=== PATIENT | female | born 1945 | race Asian ===

== ENCOUNTER 2022-03-13 11:25 | Outpatient (CLI) | payer MEDICARE, SELFPAY ==
--- NOTE | ~2022-03-13 | XR_ITS ---
XR chest 2V DATE: 03/13/2022 11:55 INDICATION: Cough for one week TECHNIQUE: 2 views COMPARISON: None FINDINGS: Left-sided transvenous pacemaker device with leads overlying right atrium and right ventric le. Normal heart size. No hilar or mediastinal enlargement. No pulmonary infiltrate or consolidation, pleural effusion or pulmonary vascular congestion or pneumo thorax. Osteopenia. There is mild thoracolumbar levoscoliosis. IMPRESSION: No active cardiopulmonary disease Dual-lead left-sided pacemaker device Osteopenia Reviewed, dictated and finalized at location B. ING MACHINE OPERATOR
[2022-03-13 11:50] LABS: Basophils Percent Auto 0.2 % (0.2-1.2); Eosinophils Absolute Auto 0.2 K/mm3 (0-0.3); Eosinophils Percent Auto 1.9 % (0-4.4); Hematocrit 36.8 % (37.0-47.0); Hemoglobin 12.1 g/dL (12.0-15.0); Immature Granulocyte Absolute 0.03 K/mm3 (0.00-0.031); Immature Granulocyte Percent A 0.3 % (0-0.5); Lymphocytes Percent Auto 15.2 % (18.3-44.2); Mean Corpuscular HGB Conc 32.9 g/dl (32-36); Mean Corpuscular Hemoglobin 27.8 pg (26-34); Mean Corpuscular Volume 84.6 fl (80-100); Mean Platelet Volume 10.9 fl (7.4-10.4); Monocytes Absolute Auto 0.8 K/mm3 (0.1-0.6); Monocytes Percent Auto 8.5 % (2.6-8.5); Neutrophils Absolute Auto 6.8 K/mm3 (1.3-6.7); Neutrophils Percent Auto 73.9 % (45.5-73.1); Platelet Count Result 169 k/mm3 (150-375); Red Blood Count 4.35 M/mm3 (4.2-5.4); Red Cell Distribution Width 14.2 % (11.5-14.5); White Blood Count 9.2 K/mm3 (4.5-10.0)
[2022-03-13 12:09] LABS: Alanine Aminotransferase 24 U/L (6-35); Alkaline Phosphatase 72 U/L (38-126); Anion Gap 6 mmol/L (8-16); Aspartate Amino Transferase 39 U/L (14-36); Bilirubin,Total 0.5 mg/dL (0.2-1.3); Blood Urea Nitrogen 35 mg/dL (7-17); Calcium 8.6 mg/dL (8.4-10.2); Carbon Dioxide 23 mmol/L (22-30); Chloride 100 mmol/L (98-107); Cholesterol 144 mg/dL (0-200); Estimated Glomerular Filt Rate 24; Glucose 103 mg/dL (65-110); HDL Direct 44 mg/dL; Potassium 4.2 mmol/L (3.4-5.0); Sodium 129 mmol/L (137-145); Triglycerides 152 mg/dL (<150)
[2022-03-13 12:20] LABS: LDL Cholesterol Direct 58 mg/dL
[2022-03-13 12:30] LABS: Free T4 Free Thyroxine 1.55 ng/mL (0.78-2.19)
== END 2022-03-13 11:26 | disposition home or self-care (01) ==
PROVIDERS: PCP Family Medicine; Visit Provider Family Medicine
DX: E03.9 Hypothyroidism, unspecified (principal); I10 Essential (primary) hypertension; E78.2 Mixed hyperlipidemia; R05.9 Cough, unspecified; M85.80 Other specified disorders of bone density and structure, unspecified site; Z95.0 Presence of cardiac pacemaker
CPT/HCPCS: 36415; 71046; 80053; 80061; 84439; 84443; 84480; 85025

== ENCOUNTER 2022-08-21 09:40 | Outpatient (CLI) | payer MEDICARE, SELFPAY ==
[2022-08-21 10:20] LABS: Alanine Aminotransferase 22 U/L (6-35); Albumin Level 4.1 g/dL (3.5-5.1); Alkaline Phosphatase 77 U/L (38-126); Anion Gap 7 mmol/L (8-16); Aspartate Amino Transferase 32 U/L (14-36); Bilirubin,Total 0.4 mg/dL (0.2-1.3); Blood Urea Nitrogen 17 mg/dL (7-17); Calcium 9.2 mg/dL (8.4-10.2); Carbon Dioxide 27 mmol/L (22-30); Chloride 108 mmol/L (98-107); Cholesterol 149 mg/dL (0-200); Creatine Kinase 73 U/L (30-135); Estimated Glomerular Filt Rate 44; Glucose 93 mg/dL (65-110); HDL Direct 47 mg/dL; Potassium 4.4 mmol/L (3.4-5.0); Sodium 142 mmol/L (137-145); Triglycerides 125 mg/dL (<150)
[2022-08-21 10:31] LABS: LDL Cholesterol Direct 67 mg/dL
== END 2022-08-21 09:41 | disposition home or self-care (01) ==
PROVIDERS: PCP Family Medicine; Visit Provider Specialist
DX: R60.0 Localized edema (principal); I10 Essential (primary) hypertension
CPT/HCPCS: 36415; 80053; 80061; 82550

== ENCOUNTER 2024-01-20 11:57 | Outpatient (CLI) | payer MEDICARE, SELFPAY ==
--- NOTE | ~2024-01-20 | XR_ITS ---
Lumbosacral Spine: AP and lateral views Clinical History: Pain Findings: The normal lordotic curve is maintained. No fracture evident. Probable minimal grade 1 ante rolisthesis of L4 over L5. There is advanced facet arthropathy throughout the lumbar spine. The sacro iliac joints are normally outlined. Impression: Advanced facet arthropathy throughout the lumbar spine. Minimal grade 1 anterolisthesis of L4 over L5. Reviewed, dictated and finalized at location M. Impression: Advanced facet arthropathy throughout the lumbar spine. Minimal grade 1 anterolisthesis of L4 over L5.
== END 2024-01-20 11:58 | disposition home or self-care (01) ==
PROVIDERS: PCP Family Medicine; Visit Provider Family Medicine
DX: M54.50 Low back pain, unspecified (principal); G89.29 Other chronic pain
CPT/HCPCS: 72100

== ENCOUNTER 2024-03-27 09:19 | Outpatient (CLI) | payer MEDICARE, SELFPAY ==
[2024-03-27 18:09] LABS: Basophils Percent Auto 0.2 % (0.2-1.2); Eosinophils Absolute Auto 0.2 K/mm3 (0-0.3); Eosinophils Percent Auto 2.1 % (0-4.4); Hematocrit 37.4 % (37.0-47.0); Hemoglobin 11.4 g/dL (12.0-15.0); Immature Granulocyte Absolute 0.02 K/mm3 (0.00-0.031); Immature Granulocyte Percent A 0.2 % (0-0.5); Lymphocytes Absolute Auto 2.41 K/mm3 (0.9-3.2); Lymphocytes Percent Auto 28.2 % (18.3-44.2); Mean Corpuscular HGB Conc 30.5 g/dl (32-36); Mean Corpuscular Hemoglobin 25.5 pg (26-34); Mean Corpuscular Volume 83.7 fl (80-100); Mean Platelet Volume 11.4 fl (7.4-10.4); Monocytes Absolute Auto 0.6 K/mm3 (0.1-0.6); Monocytes Percent Auto 6.5 % (2.6-8.5); Neutrophils Absolute Auto 5.4 K/mm3 (1.3-6.7); Neutrophils Percent Auto 62.8 % (45.5-73.1); Platelet Count Result 249 k/mm3 (150-375); Red Blood Count 4.47 M/mm3 (4.2-5.4); Red Cell Distribution Width 16.6 % (11.5-14.5); White Blood Count 8.6 K/mm3 (4.5-10.0)
[2024-03-27 18:15] LABS: Alanine Aminotransferase 21 U/L (6-35); Albumin Level 4.2 g/dL (3.5-5.1); Alkaline Phosphatase 82 U/L (38-126); Anion Gap 4 mmol/L (4-12); Aspartate Amino Transferase 57 U/L (14-36); Bilirubin,Total 0.5 mg/dL (0.2-1.3); Blood Urea Nitrogen 21 mg/dL (7-17); Calcium 9.6 mg/dL (8.4-10.2); Carbon Dioxide 29 mmol/L (22-30); Chloride 105 mmol/L (98-107); Cholesterol 160 mg/dL (0-200); Estimated Glomerular Filt Rate 36; Glucose 84 mg/dL (65-110); HDL Direct 46 mg/dL; Potassium 4.7 mmol/L (3.4-5.0); Sodium 138 mmol/L (137-145); Triglycerides 198 mg/dL (<150)
[2024-03-27 18:27] LABS: LDL Cholesterol Direct 64 mg/dL
[2024-03-27 18:54] LABS: Vitamin D 25 Hydroxy 33.5 ng/mL
[2024-03-28 05:59] LABS: Free T4 Free Thyroxine Reflex 1.29 ng/dL (0.78-2.19)
[2024-03-28 06:38] LABS: Total Triiodothyronine (T3) 1.03 NG/ML (0.97-1.69)
== END 2024-03-27 09:20 | disposition home or self-care (01) ==
LOC: ANHGOSHLAB 09:20
PROVIDERS: PCP Family Medicine; Visit Provider Family Medicine
DX: E03.9 Hypothyroidism, unspecified (principal); Z00.00 Encounter for general adult medical examination without abnormal findings; R73.9 Hyperglycemia, unspecified; I10 Essential (primary) hypertension; E78.5 Hyperlipidemia, unspecified; E55.9 Vitamin D deficiency, unspecified; E53.8 Deficiency of other specified B group vitamins
CPT/HCPCS: 36415; 80053; 80061; 82306; 82607; 83036; 84439; 84443; 84480; 85025

== ENCOUNTER 2024-07-03 13:44 | Outpatient (CLI) | payer MEDICARE, MEDICAID, SELFPAY ==
--- NOTE | ~2024-07-03 | MM_ITS ---
EXAMINATION: MM screening brit BI w isauro HISTORY: Screening TECHNIQUE: Craniocaudal and mediolateral oblique 3-D tomosynthesis images were obtained and synthetic 2-D images were generated. CAD analysis was submitted and interpreted. COMPARISON: No prior mammogram is available for comparison at this institution. BREAST PARENCHYMAL COMPOSITION: There are scattered areas of fibroglandular density. FINDINGS: Punctate calcifications detected bilaterally, vascular in origin and benign in appearance. Unremarkable parenchymal pattern without suspicious microcalcifications, architectural distortion, di screte masses or significant asymmetry. IMPRESSION: 1. No mammographic/tomographic evidence of malignancy. Comparison with prior imaging is suggested. BI-RADS Category 0: Incomplete: Needs comparison with prior mammograms. Reviewed, dictated and finalized at location A.
== END 2024-07-03 13:45 | disposition home or self-care (01) ==
LOC: MICIMG 13:45
PROVIDERS: PCP Family Medicine; Visit Provider Family Medicine
DX: Z12.31 Encounter for screening mammogram for malignant neoplasm of breast (principal); R92.8 Other abnormal and inconclusive findings on diagnostic imaging of breast
CPT/HCPCS: 77063; 77067

== ENCOUNTER 2024-07-20 11:29 | Outpatient (CLI) | payer MEDICARE, MEDICAID, SELFPAY ==
[2024-07-20 12:30] LABS: Hematocrit 36.6 % (37.0-47.0); Hemoglobin 11.9 g/dL (12.0-15.0); Mean Corpuscular HGB Conc 32.5 g/dl (32-36); Mean Corpuscular Hemoglobin 27.5 pg (26-34); Mean Corpuscular Volume 84.5 fl (80-100); Platelet Count Result 210 k/mm3 (150-375); Red Blood Count 4.33 M/mm3 (4.2-5.4); Red Cell Distribution Width 14.5 % (11.5-14.5)
[2024-07-20 12:33] LABS: Add Urine Microscopic? NO; Appearance Urine Clear (Clear); Bilirubin Urine Negative (Negative); Blood Urine Negative (Negative); Color Urine Yellow (Yellow); Glucose Urine UA Negative (Negative); Ketones Urine Negative (Negative); Leukocyte Esterase Ur Negative LEU/UL (Negative); Nitrate Urine Negative (Negative); Protein Urine Negative (Negative); Specific Grav Ur 1.006 (1.001-1.035); Urobilinogen Urine 0.2 mg/dL (<2.0)
[2024-07-20 12:53] LABS: Parathyroid Intact 55.2 pg/mL (14.5-75.2)
[2024-07-20 12:58] LABS: Creatinine Urine 34.3 mg/dL; Total Protein Urine Random 10 mg/dL; Ur Ttl Prot Creatinine Ratio 0.29 mg/mg (0-0.20)
[2024-07-20 13:05] LABS: Albumin Level 4.2 g/dL (3.5-5.1); Anion Gap 12 mmol/L (4-12); Blood Urea Nitrogen 21 mg/dL (7-17); Calcium 9.1 mg/dL (8.4-10.2); Carbon Dioxide 20 mmol/L (22-30); Chloride 105 mmol/L (98-107); Estimated Glomerular Filt Rate 39; Glucose 98 mg/dL (65-110); Phosphorus 4.2 mg/dL (2.5-4.5); Potassium 4.3 mmol/L (3.4-5.0); Sodium 137 mmol/L (137-145)
--- OUTSIDE RECORDS SUMMARY | 2024-07-20 13:08 | XMS_ITS | Clinical Summary ---
Author Organization [facility] Address [address] [place] [address] Phone Care Team Providers Care Supply Assistant Name Role Phone Provider, Not On File Primary Care Provider Unav ailable Allergies No known active allergies Medications apixaban (ELIQUIS) 5 MG Tablet Take 5 mg by mouth 2 times daily. hold starting 12/09 for surgery Active levothyroxine (SYNTHROID) 75 MCG Tablet Take 75 mcg by mouth daily. Active atorvastatin (LIPITOR) 40 MG Tablet Take 40 mg by mouth daily. Active olmesartan-hydr ochlorothiazide (BENICAR HCT) 40-12.5 MG Tablet Take 1 Tablet by mouth daily. Active omeprazole (PriLOSEC) 20 MG CAPSULE DELAYED RELEASE Take 20 mg by mouth daily. before breakfast Active aspirin EC 81 MG Tablet Delayed Response Take 81 mg by mouth daily. Active budesonide-form oterol fumarate (SYMBICORT) 160-4.5 MCG/ACT Aerosol take 1 Puff by inhalation daily. 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 Atrial fibrillation 11/17/2021 Resolved Problems Problem Noted Date Diagnosed Date Resolved Date Dizziness 11/17/2021 11/20/2021 Orthostatic hypotension 11/17/202111/06 Family History Medical History Relation Name Comments No Known Problems Father No Known Problems Mother Relation Name Status Comments Father Mother Social History Tobacco Use Types Packs/Day Years Used Date Smoking Tobacco: Never Smokeless Tobacco: Never Alcohol Use Standard Drinks/Week Comments Never 0 (1 standard drink = 0.6 oz pur e alcohol) Comments Unknown Sex and Gender Information Value Date Recorded Sex Assigned at Not on file Legal Sex Female 9:01 PM CDT Gender Identity Not on file Sexual Orientation Not on file Last Filed Vital Signs Vital Sign Reading Time Taken Comments Blood Pressure 132/56 01/09/2022 3:37 PM CDT Pulse 58 01/09/2022 3:37 PM CDT Temperature 36.7 C (98.1 F) 01/09/2022 3:37 PM CDT Respiratory Rate 18 01/09/2022 3:37 PM CDT Oxygen Saturation 97% 01/09/2022 3:37 PM CDT Inhaled Oxygen Concentration - - Weight 68.9 kg (152 lb) 12/06/2021 3:08 PM CDT Height 154.9 cm (5' 1 ) 11/21/2021 2:47 PM CDT Body Mass Index 28.72 11/21/2021 2:47 PM CDT Plan of Treatment Health Maintenance Due Date Last Done Comments Hepatitis C Virus (HCV) Screening 1945 TdaP Immunization 1945 Zoster Immunization (1 of 2) 1996 Respiratory Syncytial Virus (RSV) Immunization (Adult) (1 - 1-dose 75+ series) 2021 Pneumococcal Immunization (5 0+ years) (2 of 2 - PPSV23) 01/04/2022 01/04/2021 Influenza Immunization (#1) 2023 01/04/2021 SARS-COV-2 Immunization ( - season) 2023 04/17/2021, 07/26/2020, 07/06/2020 Hepatitis B Immunization Aged Out No longer eligible based on patient's age to complete this topic Meningococcal Immunization (ACWY) Aged Out No longer eligible b ased on patient's age to complete this topic Rotavirus Immunization Aged Out No lo nger eligible based on patient's age to complete this topic Insurance MEDICARE C [facility] on file Advance Directives * Full Code (Latest Code Status on File) Date Activated Date Inactivated Comments 11/27/2021 4:48 PM * Full Code Date Activated Date Inactivated Comments 11/17/2021 2:51 AM 11/20/2021 2:07 PM CPR-Full [place] atment: FULL ARREST: Attempt Resuscitation/CPR wit intubation and mechanical ventilation. PRE-ARREST: Use entire range of life support measures to stabilize the patient. Care Teams Supply Assistant Relationship Specialty Start Date End Date Provider, Not On File [place] PCP - General 11/17/21
--- OUTSIDE RECORDS SUMMARY | 2024-07-20 13:08 | XMS_ITS | Clinical Summary ---
Author Organization [facility] Address [facility] [place] [address] Care Team Providers Care Unattended Ground Sensor Specialist Name Role Phone Preeti So MD Primary Care Provider [phone] Medications apixaban (ELIQUIS) 5 MG tablet Take 5 mg by mouth 2 (two) times daily. 2 Active atorvastatin (LIPITOR) 40 MG tablet Take 40 mg by mouth daily. 2 Active dilTIAZem (CARDIZEM) 30 MG tablet Take 30 mg by mouth 3 (three) times daily. 2 Active EUTHYROX 75 MCG tablet Take 75 mcg by mouth daily. 2 Active Olmesartan Medoxomil-HCTZ 40-12.5 MG Tab Take 1 tablet by mouth daily. 2 Active omeprazole (PRILOSEC) 20 MG capsule TAKE 1 CAPSULE BY MOUTH ONCE DAILY BEFORE BREAKFAST 2 Active SPIRIVA RESPIMAT 2.5 MCG/ACT inhaler (SPIRIVA RESPIMAT) Inhale 2 puffs into the lungs. 2 Active aspirin EC (ECOTRIN) 81 MG tablet Take 81 mg by mouth daily. 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 Hypertension 11/17/2021 Hyperlipidemia 11/17/2021 GERD (gastroesophageal reflux disease) 2 Atrial fibrillation (CMS/HCC HHS/HCC) 11/17/2021 CKD (chronic kidney disease) stage 3, GFR 30-59 ml/min 07/24/2021 Social History Tobacco Use Types Packs/Day Years Used Date Smoking Tobacco: Never Smokeless Tobacco: Never Alcohol Use Standard Drinks/Week Comments Never 0 (1 standard drink = 0.6 oz pur e alcohol) Comments Unknown Sex and Gender Information Value Date Recorded Sex Assigned at Not on file Legal Sex Female 3:42 PM CDT Gender Identity Not on file Sexual Orientation Not on file Last Filed Vital Signs Vital Sign Reading Time Taken Comments Blood Pressure 138/78 01/02/2022 8:16 AM CDT Pulse 72 01/02/2022 8:16 AM CDT Temperature 36.2 C (97.1 F) 01/02/2022 8:16 AM CDT Respiratory Rate 20 01/02/2022 8:16 AM CDT Oxygen Saturation - - Inhaled Oxygen Concentration - - Weight 72.6 kg (160 lb) 01/02/2022 8:16 AM CDT Height 154.9 cm (5' 1 ) 01/02/2022 8:16 AM CDT Body Mass Index 30.23 01/02/2022 8:16 AM CDT Plan of Treatment Health Maintenance Due Date Last Done Comments Hepatitis C 1963 DTaP, Tdap and Td Vaccines ( 1 - Tdap) 1965 Zoster Vaccines (1 of 2) 1996 Annual Medicare Wellness Visit 11/11/2011 Dexa Scan (General) 11/11/2011 RSV Immunization or 60+ Years (1 - 1-dose 75+ series) 2021 Pneumococcal Vaccine: 50+ Years (2 of 2 - PPSV23 or PCV20) 01/04/2022 01/04/2021 COVID-19 Vaccine (4 - 2023-2 5 season) 2023 04/17/2021, 07/26/2020, 07/06/2020 Meningococcal B Vaccine Aged Out No l onger eligible based on patient's age to complete this topic Meningococcal Vaccine Aged Out No kia shoshana eligible based on patient's age to complete this topic RSV Immunizations Under 20 Months Aged Out No longer eligible b ased on patient's age to complete this topic Insurance [facility] Care Teams Unattended Ground Sensor Specialist Relationship Specialty Start Date End Date Preeti So MD [address] [place] [phone] PCP - General FAMILY PRACTICE 12/04/21
--- OUTSIDE RECORDS SUMMARY | 2024-07-20 13:08 | XMS_ITS | Clinical Summary ---
Author Organization [facility] Address [address] [place] [address] Care Team Providers Care Economic Development Coordinator Name Role Phone Preeti So MD Unavailable [phone] Preeti So MD Primary Care Provider [phone] Source Comments [facility],non-owned Affiliates and Associated Physician Practices is amultiple site organization consisting of ambulatory clinics and hospital sitesin [place], [place], [place]. This disclosure is being madepursuant to the Care Everywhere program and may not contain all information available regarding this patient. Last updated 17.[facility] Allergies No known active allergies Medications * Be aware that medications may not be up to date on this document. Alwaysverify current medications with the patient. aspirin (ASPIRIN) 81 MG chew tabletIndications: Essential hypertension Take 1 tablet by mouth once daily 100 tablet 4 0 Active nebivolol (BYSTOLIC) 5 MG tabletIndications: Essential hypertension Take 1 (one) tablet by mouth once daily 90 tablet 3 2 Active olmesartan-hydroCH LOROthiazide (BENICAR HCT) 40-12.5 MG tabletIndications: Essential hypertension Take 1 (one) tablet by mouth once daily 90 tablet 2 2 Active tiotropium (Spiriva Respimat) 2.5 MCG/ACT inhaler Inhale 2 (two) puffs by mouth once daily 12 g 4 2 Active scopolamine (Transderm-Scop) 1 MG patch Apply 1 (one) patch to skin every 72 hours as needed for Other 3 patch 2 Active apixaban (Eliquis) 5 MG tabletIndications: Atrial fibrillation, new onset (HCC) Take 1 (one) tablet by mouth 2 times daily 60 tablet 2 Active levothyroxine (Synthroid) 75 MCG tablet Take 1 tablet by mouth once daily 90 tablet 3 Active atorvastatin (Lipitor) 40 MG tabletIndications: Hyperlipidemia, unspecified hyperlipidemia type Take 1 tablet by mouth once daily 90 tablet 3 Active omeprazole (PriLOSEC) 20 MG capsuleIndications :Gastroesophageal reflux disease without esophagitis TAKE 1 CAPSULE BY MOUTH ONCE DAILY BEFORE BREAKFAST 30 capsule 3 Active Active Problems Problem Noted Date Diagnosed Date CKD (chronic kidney disease) stage 3, GFR 30-59 ml/min 07/24/2021 Immunizations Immunization Administration Dates Next Due INFLUENZA VACCINE, QUADR. (F LUZONE; FLULAVAL; FLUARIX; AFLURIA QUADRIVALENT; 6MO+), 0.5 ML (IIV4) 01/04/2021 Pneumococcal Pcv13 Conj 01/04/2021 Social History Tobacco Use Types Packs/Day Years Used Date Smoking Tobacco: Never Smokeless Tobacco: Never Alcohol Use Standard Drinks/Week Comments Never 0 (1 standard drink = 0.6 oz pur e alcohol) AUDIT-C Answer Date Recorded Q1: How often do you have a drink containing alc ohol? Never 10/08/2019 Average Number of Drinks Not on file Frequency of Binge Drinking Not on file 05/2019 PHQ-2 Answer Date Recorded PHQ2 TOTAL SCORE 0 11/16/2021 Comments No Sex and Gender Information Value Date Recorded Sex Assigned at Not on file Legal Sex Female 11:34 AM CDT Gender Identity Not on file Sexual Orientation Not on file Last Filed Vital Signs Vital Sign Reading Time Taken Comments Blood Pressure 140/68 11/16/2021 1:10 PM CDT Pulse 65 11/16/2021 1:10 PM CDT Temperature 35.9 C (96.7 F) 11/16/2021 1:10 PM CDT Respiratory Rate 20 11/16/2021 1:10 PM CDT Oxygen Saturation 98% 11/16/2021 1:10 PM CDT Inhaled Oxygen Concentration - - Weight 72.1 kg (159 lb) 11/16/2021 1:10 PM CDT Height 165.1 cm (5' 5 ) 11/16/2021 1:10 PM CDT Body Mass Index 26.46 11/16/2021 1:10 PM CDT Plan of Treatment Health Maintenance Due Date Last Done Comments BONE DENSITY TESTING 1945 HEPATITIS C SCREENING 11/05/1963 DTAP/TDAP/TD VACCINES (1 - Tdap) 1965 ZOSTER VACCINE (1 of 2) 1996 Respiratory Syncytial Virus (RSV) Vaccine Pt: or over 60 yrs (1 - 1-dose 75+ series) 2021 PNEUMOCOCCAL VACCINE 50+ (2 of 2 - PPSV23) 01/04/2022 01/04/2021 COVID-19 VACCINE (3 - 2023-2 5 season) 2023 07/26/2020, 07/06/2020 DEPRESSION SCREENING 04/08/2024 07/25/2021 MEDICARE AWV CALENDAR YEAR 2024 07/25/2021 INFLUENZA VACCINE (Season Ended) 2024 01/04/2021 HEPATITIS B VACCINE Aged Out No longe r eligible based on patient's age to complete this topic HIB VACCINE Aged Out No longer eligi ble based on patient's age to complete this topic HPV VACCINE Aged Out No longer eligi ble based on patient's age to complete this topic MENINGOCOCCAL (Group B) VACCINE SHARED DECISION-MAKING Aged Out No longer eligible based on patient's age to complete this topic MENINGOCOCCAL GROUPS A/C/Y/W VACCINE Aged Out No longer eligible b ased on patient's age to complete this topic Insurance MEDICARE [facility] MANAGED MEDICARE ADV MEDICAID - PENDING [facility] MANAGED MEDICARE ADV Care Teams Economic Development Coordinator Relationship Specialty Start Date End Date Preeti So MD [address] [place] [address] PCP - General 08/15/23 Preeti So MD [address] [place] [phone] Family Medicine 10/08/19
[2024-07-20 13:12] LABS: Erythrocyte Sedimentation Rate 18 mm/hr (0-20)
[2024-07-20 13:48] LABS: Complement C3 144 mg/dL (88-165)
[2024-07-20 13:55] LABS: Creatine Kinase 71 U/L (30-135)
[2024-07-22 15:38] LABS: Kappa\\Lambda Light Chains 1.62 (0.26-1.65); Lambda Light Chain 26.9 mg/L (5.7-26.3)
[2024-07-22 16:20] LABS: Complement Total CH50 >60 U/mL (31-60)
[2024-07-23 22:28] LABS: Immunofixation, Serum Normal pattern.
== END 2024-07-20 11:30 | disposition home or self-care (01) ==
PROVIDERS: PCP Family Medicine; Visit Provider Internal Medicine Nephrology
DX: I12.9 Hypertensive chronic kidney disease with stage 1 through stage 4 chronic kidney disease, or unspecified chronic kidney disease (principal); N18.32 Chronic kidney disease, stage 3b
CPT/HCPCS: 36415; 80069; 81003; 82550; 82570; 83883; 83970; 84156; 85027; 85652; 86038; 86160; 86162; 86334

== ENCOUNTER 2024-07-27 10:32 | Outpatient (NON) | payer MEDICARE, MEDICAID, SELFPAY ==
--- OUTSIDE RECORDS SUMMARY | 2024-07-27 11:59 | XMS_ITS | Clinical Summary ---
Author Organization [facility] Address [address] [place] [address] Care Team Providers Care Tub Washer Name Role Phone Preeti So MD Unavailable [phone] Preeti So MD Primary Care Provider [phone] Source Comments [facility],non-owned Affiliates and Associated Physician Practices is amultiple site organization consisting of ambulatory clinics and hospital sitesin [place], [place], [place] and [place]. This disclosure is being madepursuant to the Care Everywhere program and may not contain all information available regarding this patient. Last updated 17.[facility] Allergies No known active allergies Medications [...] age to complete this topic Insurance MEDICARE [facility] MANAGED MEDICARE ADV MEDICAID - PENDING [facility] MANAGED MEDICARE ADV Care Teams Tub Washer Relationship Specialty Start Date End Date Preeti So MD [address] [place] [address] PCP - General 08/15/23 Preeti So MD [address] [place] [phone] Family Medicine 10/08/19
--- OUTSIDE RECORDS SUMMARY | 2024-07-27 11:59 | XMS_ITS | Clinical Summary ---
Author Organization [facility] Address [address] [place] [address] Phone Care Team Providers Care Staff Midwife Name Role Phone Provider, Not On File [...] to complete this topic Insurance MEDICARE C [facility] on file Advance Directives * Full Code (Latest Code Status on File) Date Activated Date Inactivated Comments 11/27/2021 4:48 PM * Full Code Date Activated Date Inactivated Comments 11/17/2021 2:51 AM 11/20/2021 2:07 PM CPR-Full [place] atment: FULL ARREST: Attempt Resuscitation/CPR wit intubation and mechanical ventilation. PRE-ARREST: Use entire range of life support measures to stabilize the patient. Care Teams Staff Midwife Relationship Specialty Start Date End Date Provider, Not On File [place] PCP - General 11/17/21
--- OUTSIDE RECORDS SUMMARY | 2024-07-27 11:59 | XMS_ITS | Clinical Summary ---
Author Organization [facility] Address [facility] [place] [address] Care Team Providers Care Development Coordinator Name Role Phone Preeti So MD Primary Care Provider Medications apixaban (ELIQUIS) 5 MG tablet Take [...] Vaccine: 50+ Years (2 of 2 - PPSV23) 01/04/2022 01/04/2021 COVID-19 Vaccine (4 - 2023-2 [...] patient's age to complete this topic Insurance [facility] Care Teams Development Coordinator Relationship Specialty Start Date End Date Preeti So MD [address] [place] [phone] PCP - General FAMILY PRACTICE 12/04/21
--- OUTSIDE RECORDS SUMMARY | 2024-07-27 11:59 | XMS_ITS | Data Portability ---
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 They declined for any labs at this time. Pt is planning to go to [facility] next month. All meds verified with them. Meds as directed. Diet and exercise explained in detail. BP diary education given and call us if any concerns. Fall risk precautions explained. Cont f/u with Cardio at [place] as per schedule. HM: WWE - Pt declined. Mammo - Pt declined. Colonoscopy - Pt declined. DEXA - Pt declined. Flu - 12/29. Tdap, Pneumo, Shingrix - At pharmacy/HD. F/u in 3-4 months. Annual labs in 01/29. [email or web address] Not available 01/09/2023 15:57:40 09/05/2023 09/05/2023 77 yo F with - HTN - HLD - HYPOTHYROIDISM - GERD - OA - VIT D DEFICIENCY - IMPARIED MOBILITY - OBESITY I D/w pt and family in detail about her conditions and further plan of care. Will do routine labs. Advised them to f/u with her Cardio about her intermittent dizziness and HTN meds. All meds verified with them. Meds as directed. Diet and exercise explained in detail. BP diary education given and call us if any concerns. Fall risk precautions explained. Cont f/u with Cardio at [place] as per schedule. HM: WWE - Pt declined. Mammo - Pt declined. Colonoscopy - Pt declined. DEXA - Pt declined. Flu - 12/29. Tdap, Pneumo, Shingrix - At pharmacy/HD. F/u in 3-4 weeks. Annual labs in 09/30. Not available 09/05/2023 10:08:33 10/21/2023 10/21/2023 77 yo F with - VIT B12 DEFICIENCY - ANEMIA, mild - HTN - HLD - HYPOTHYROIDISM - GERD - OA - VIT D DEFICIENCY - IMPARIED MOBILITY - OBESITY I Annual labs: 10/02/23. D/w pt and son in detail about her conditions, recent labs & imagines and further plan of care. Pt declined for any repeat labs until her next annual labs. Advised them to f/u with her Cardio about her intermittent dizziness and HTN meds. All meds verified with them. Meds as directed. Diet and exercise explained in detail. BP diary education given and call us if any concerns. Fall risk precautions explained. Cont f/u with Cardio at [place] as per schedule. HM: WWE - Pt declined. Mammo - Pt declined. Colonoscopy - Pt declined. DEXA - Pt declined. Flu - 12/29. Tdap, Pneumo, Shingrix - At pharmacy/HD. F/u in 3-6 months. Annual labs in 09/30. [email or web address] Not available 10/21/2023 14:44:57 Plan of Treatment Reminders Order Date Submit Date Provider Last Modified By Organization Details Last Modified Time Details Appointments None recorded. Lab vitamin B12 + folate, serum or blood [address] (Lab), [address] [place], [address], 4 08:04:29 HbA1c (hemoglobin A1c), blood [address] (Lab), [address] [place], [address], 4 08:04:29 uric acid, serum or plasma [address] (Lab), [address] [place], [address], 4 08:04:29 CBC w/ auto diff [address] (Lab), [address] [place], [address], 4 08:04:28 CMP, serum or plasma [address] (Lab), [address] [place], [address], 4 08:04:28 urinalysis complete, reflex culture [address] (Lab), [address] [place], [address], 4 08:04:28 lipid panel, serum [address] (Lab), [address] [place], [address], 4 08:04:28 vitamin D, 25-hydroxy, total, serum [address] (Lab), [address] [place], [address], 4 08:04:29 TSH, serum or plasma [address] (Lab), [address] [place], [address], 4 08:04:28 Referral None recorded. Procedures None recorded. Surgeries None recorded. Imaging None recorded. Medication Orders cyanocobala min (vit B-12) 1,000 mcg/mL injection solution 2023 [email or web address] [id number] Not available 15:35:53 olmesartan 40 mg-hydrochl orothiazide 12.5 mg tablet 2023 [facility], [address], [place], [address], 4 14:39:39 metoprolol succinate ER 25 mg tablet,exte nded release 24 hr 2023 [facility], [address], [place], [place], [address], 4 14:39:40 ergocalcife rol (vitamin D2) 1,250 mcg (50,000 unit) capsule 2023 024 [facility], [address], [place], [address], 4 14:39:38 omeprazole 20 mg capsule,del ayed release 2023 024 [facility], [address], [place], [place], [address], 4 14:39:41 atorvastati n 20 mg tablet 2023 024 [facility], [address], [place], [place], [address], 4 14:39:39 levothyroxi ne 75 mcg tablet 2023 024 [facility], [address], [place], [place], [address], 4 14:39:39 olmesartan 40 mg-hydrochl orothiazide 12.5 mg tablet 2023 024 [facility], [address], [place], [address], 4 09:48:48 metoprolol succinate ER 25 mg tablet,exte nded release 24 hr 2023 [facility], [address], Ry [place], [place], [address], 4 09:48:47 atorvastati n 20 mg tablet 2023 024 [facility] [address], [address] Rios, [place], [address], 4 09:48:44 meclizine 25 mg tablet 2023 024 [facility], [address] Rios, [place], [address], 4 09:48:46 omeprazole 20 mg capsule,del ayed release 2023 024 [facility], [address], [place], [place], [address], 4 09:48:45 levothyroxi ne 75 mcg tablet [email or web address] [facility], [address] Rios, [place], [address], 4 09:49:04 olmesartan 40 mg-hydrochl orothiazide 12.5 mg tablet 2022 023 [facility], [address] Rios, [place], [address], 3 15:36:53 metoprolol succinate ER 25 mg tablet,exte nded release 24 hr 2022 023 [facility], [address], [place], [place], [address], 3 15:36:56 omeprazole 20 mg capsule,del ayed release 2022 023 [facility], [address] Rios, [place], [address], 15:36:53 atorvastati n 20 mg tablet 2022 023 [facility], [address], [place], [address], 15:36:57 levothyroxi ne 75 mcg tablet 2022 023 [facility], [address]ios, [place], [address], 15:36:55 Patient TargetsNo targets recorded. Patient InstructionsNo instructions recorded. Reason for Referral None Reported. Results Created Date Observation Date Name Description Value Unit Range Abnormal Flag Note LastModifiedBy Organization Detail LastModifiedTime 10/02/1910/02/2023 COMPR EHENS ROHITH METAB OLIC PANEL sodium 138 mmol/ L 137-14 5 Not Available [facility] (Lab) [address] [place], [address], 10/02/2023 13:46:24 10/02/19 24 10/02/2023 COMPR EHENS ROHITH METAB OLIC PANEL potassium 4.6 mmol/ L 3.5-5. 1 Not Available [facility] (Lab) [address] [place], [address], 10/02/2023 13:46:24 10/02/19 24 10/02/2023 COMPR EHENS ROHITH METAB OLIC PANEL chloride 106 mmol/ L 98-107 Not Available [facility] (Lab) [address] [place], [address], 10/02/2023 13:46:24 10/02/19 24 10/02/2023 COMPR EHENS ROHITH METAB OLIC PANEL carbon dioxide 25 mmol/ L 22-30 Not Available [facility] (Lab) [address] [place], [address], 10/02/2023 13:46:24 10/02/19 24 10/02/2023 COMPR EHENS ROHITH METAB OLIC PANEL anion gap 11.6 mmol/ L 14-22 low Not Available [facility] (Lab) [address] [place], [address], 10/02/2023 13:46:24 10/02/19 24 10/02/2023 COMPR EHENS ROHITH METAB OLIC PANEL glucose 92 mg/dL 70-99 Not Available [facility] (Lab) [address] [place], [address], 10/02/2023 13:46:24 10/02/19 24 10/02/2023 COMPR EHENS ROHITH METAB OLIC PANEL BUN 18 mg/dL 8-19 Not Available [facility] (Lab) [address] [place], [address], 10/02/2023 13:46:24 10/02/19 24 10/02/2023 COMPR EHENS ROHITH METAB OLIC PANEL creatinine 1.24 mg/dL 0.66-1 .25 Not Available [facility] (Lab) [address] [place], [address], 10/02/2023 13:46:24 10/02/19 24 10/02/2023 COMPR EHENS ROHITH METAB OLIC PANEL GFR 57 Refer ence Range : Mckee ge GFR Healt hy Adult : >60 mL/mi n/1.7 3 m2 Chron ic Kidne y Disea se: 15-60 mL/mi n/1.7 3 m2 Kidne y Failu re: <15/m L/min /1.73 m2 www.n iddk. nih.g ov The MDRD study equat ion has not been valid ated in child luzmaria <18 years of age; pregn ant women ; the elder ly >85 years of age; or in some racia l or ethni c subgr oups, such as Hispa nics. Outsi de the valid ated javed eters , estim ated GFR is less accur ate, requi ring clini moshe judgm ent on a case- by-ca se basis . Clini moshe inter preta tion for other races and ages must be made by the clini trixie. The MDRD study equat ion has not been valid ated for the evalu ation of serum creat inine relat ed to nutri [place] l statu s or medic ation usage . For perso ns <18 years of age, a pedia tric GFR calcu lator is avail able on the [facility] websi te: https ://inder w.tawny strange.o rg/pr ofess ional s/kdo qi/gf r_cal culat or Not Available [facility] (Lab) [address] [place], [address], 10/02/2023 13:46:24 10/02/19 24 10/02/2023 COMPR EHENS ROHITH METAB OLIC PANEL alkaline phosphatase 91 U/L 38-126 Not Available [facility] (Lab) [address] [place], [address], 10/02/2023 13:46:24 10/02/19 24 10/02/2023 COMPR EHENS ROHITH METAB OLIC PANEL alanine aminotransfe rase 21 U/L 0-50 Not Available [facility] (Lab) [address] [place], [address], 10/02/2023 13:46:24 10/02/19 24 10/02/2023 COMPR EHENS ROHITH METAB OLIC PANEL aspartate aminotransfe rase 36 U/L 15-46 Not Available [facility] (Lab) [address] [place], [address], 10/02/2023 13:46:24 10/02/19 24 10/02/2023 COMPR EHENS ROHITH METAB OLIC PANEL bilirubin, total 0.60 mg/dL 0.20-1 .30 Not Available [facility] (Lab) [address] [place], [address], 10/02/2023 13:46:24 10/02/19 24 10/02/2023 COMPR EHENS ROHITH METAB OLIC PANEL calcium 9.1 mg/dL 8.4-10 .2 Not Available [facility] (Lab) [address] [place], [address], 10/02/2023 13:46:24 10/02/19 24 10/02/2023 COMPR EHENS ROHITH METAB OLIC PANEL total protein 7.3 g/dL 6.3-8. 2 Not Available [facility] (Lab) [address] [place], [address], 10/02/2023 13:46:24 10/02/19 24 10/02/2023 COMPR EHENS ROHITH METAB OLIC PANEL albumin 4.2 g/dL 3.0-4. 4 Not Available [facility] (Lab) [address] [place], [address], 10/02/2023 13:46:24 10/02/19 24 10/02/2023 COMPR EHENS ROHITH METAB OLIC PANEL globulin 3.1 g/dL 2.6-4. 2 Not Available [facility] (Lab) [address] [place], [address], 10/02/2023 13:46:24 10/02/19 24 10/02/2023 COMPR EHENS ROHITH METAB OLIC PANEL A/G ratio 1.4 ratio 1.0-2. 0 Not Available [facility] (Lab) [address] [place], [address], 10/02/2023 13:46:24 10/02/19 24 10/02/2023 URIC ACID SERUM uric acid 7.2 mg/dL 3.5-8. 5 Not Available [facility] (Lab) [address] [place], [address], 10/02/2023 13:46:26 10/02/19 24 10/02/2023 LIPID PANEL cholesterol 151 mg/dL 140-19 9 NIH MIKE NSUS RECOM MENDA TION FOR ETTA STERO L: ADULT CHILD LOW RISK: <200 <170 BORDE RLINE : <200- 239 ----- HIGH RISK: >240 >200 Not Available [facility] (Lab) [address] [place], [address], 10/02/2023 13:46:31 10/02/19 24 10/02/2023 LIPID PANEL triglyceride s 149 mg/dL 0-150 NIH MIKE NSUS REPOR T RECOM MENDA TION FOR TRIGL YCERI AR: ADULT CHILD LOW RISK: <150 ----- BODER LINE: 150-1 99 ----- HIGH RISK: >200 ----- Not Available [facility] (Lab) [address] [place], [address], 10/02/2023 13:46:31 10/02/19 24 10/02/2023 LIPID PANEL HDL cholesterol 50 mg/dL 40- Not Available [facility] (Lab) [address] [place], [address], 10/02/2023 13:46:31 10/02/19 24 10/02/2023 LIPID PANEL LDL cholesterol, calculated 71 mg/dL 0-130 NIH MIKE NSUS REPOR T RECOM MENDA TIONS FOR LDL: ADULT CHILD LOW RISK <130 <110 (OPTI MAL LDL) <100 ----- BORDE RLINE : 130-1 59 ----- HIGH RISK: >160 >130 A TRIGL YCERI DE RESUL T >400 INVAL IDATE S THE CALCU LATIO N FOR LDL FRACT IONAT ION - THE LDL RESUL T WILL NOT BE REPOR TWYLA. Not Available [facility] (Lab) [address] [place], [address], 10/02/2023 13:46:31 10/02/19 24 10/02/2023 CBC/C OMPLE TE BLD COUNT W/DIF F white blood cells 7.3 x10'3 /uL 4.2-10 .8 Not Available [facility] (Lab) [address] [place], [address], 10/02/2023 13:53:51 10/02/19 24 10/02/2023 CBC/C OMPLE TE BLD COUNT W/DIF F red blood cells 4.44 x10'6 /uL 4.10-5 .80 Not Available [facility] (Lab) [address] [place], [address], 10/02/2023 13:53:51 10/02/19 24 10/02/2023 CBC/C OMPLE TE BLD COUNT W/DIF F hemoglobin 11.4 g/dL 13.2-1 7.0 low Not Available [facility] (Lab) [address] [place], [address], 10/02/2023 13:53:51 10/02/19 24 10/02/2023 CBC/C OMPLE TE BLD COUNT W/DIF F hematocrit 35.4 % 39.3-5 0.0 low Not Available [facility] (Lab) [address] [place], [address], 10/02/2023 13:53:51 10/02/19 24 10/02/2023 CBC/C OMPLE TE BLD COUNT W/DIF F mean red cell volume 79.7 fL 80.0-9 7.0 low Not Available [facility] (Lab) [address] [place], [address], 10/02/2023 13:53:51 10/02/19 24 10/02/2023 CBC/C OMPLE TE BLD COUNT W/DIF F mean red cell hemoglobin 25.7 pg 27.0-3 3.0 low Not Available [facility] (Lab) [address] [place], [address], 10/02/2023 13:53:51 10/02/19 24 10/02/2023 CBC/C OMPLE TE BLD COUNT W/DIF F mean RBC HGB concentratio n 32.2 g/dL 31.0-3 6.0 Not Available [facility] (Lab) [address] [place], [address], 10/02/2023 13:53:51 10/02/19 24 10/02/2023 CBC/C OMPLE TE BLD COUNT W/DIF F red cell distribution width 17.1 % 11.8-1 5.5 high Not Available [facility] (Lab) [address] [facility] [place], [address], 10/02/2023 13:53:51 10/02/19 24 10/02/2023 CBC/C OMPLE TE BLD COUNT W/DIF F platelets 220 x10'3 /uL 150-40 0 Not Available [facility] (Lab) [address] [place], [address], 10/02/2023 13:53:51 10/02/19 24 10/02/2023 CBC/C OMPLE TE BLD COUNT W/DIF F mean platelet volume 11.5 fL 9.0-12 .4 Not Available [facility] (Lab) [address] [place], [address], 10/02/2023 13:53:51 10/02/19 24 10/02/2023 CBC/C OMPLE TE BLD COUNT W/DIF F neutrophils 62.9 % 39.0-7 2.0 Not Available [facility] (Lab) [address] [place], [address], 10/02/2023 13:53:51 10/02/19 24 10/02/2023 CBC/C OMPLE TE BLD COUNT W/DIF F lymphocytes 27.6 % 16.0-4 7.0 Not Available [facility] (Lab) [address] [place], [address], 10/02/2023 13:53:51 10/02/19 24 10/02/2023 CBC/C OMPLE TE BLD COUNT W/DIF F monocytes 6.3 % 5.0-12 .0 Not Available [facility] (Lab) [address] [place], [address], 10/02/2023 13:53:51 10/02/19 24 10/02/2023 CBC/C OMPLE TE BLD COUNT W/DIF F eosinophils 2.6 % 1.0-7. 0 Not Available [facility] (Lab) [address] [place], [address], 10/02/2023 13:53:51 10/02/19 24 10/02/2023 CBC/C OMPLE TE BLD COUNT W/DIF F basophils 0.3 % 0.0-2. 0 Not Available [facility] (Lab) [address] [place], [address], 10/02/2023 13:53:51 10/02/19 24 10/02/2023 CBC/C OMPLE TE BLD COUNT W/DIF F immature granulocytes 0.3 % 0.00-0 .50 Not Available [facility] (Lab) [address] [place], [address], 10/02/2023 13:53:51 10/02/19 24 10/02/2023 CBC/C OMPLE TE BLD COUNT W/DIF F neutrophils, absolute count 4.61 x10'3 /uL 1.5-8. 0 Not Available [facility] (Lab) [address] [place], [address], 10/02/2023 13:53:51 10/02/19 24 10/02/2023 CBC/C OMPLE TE BLD COUNT W/DIF F lymphocytes, absolute count 2.02 x10'3 /uL 1.07-3 .43 Not Available [facility] (Lab) [address] [place], [address], 10/02/2023 13:53:51 10/02/19 24 10/02/2023 CBC/C OMPLE TE BLD COUNT W/DIF F monocytes, absolute count 0.46 x10'3 /uL 0.29-0 .99 Not Available [facility] (Lab) [address] [place], [address], 10/02/2023 13:53:51 10/02/19 24 10/02/2023 CBC/C OMPLE TE BLD COUNT W/DIF F eosinophils, absolute count 0.19 x10'3 /uL 0.02-0 .53 Not Available [facility] (Lab) [address] [place], [address], 10/02/2023 13:53:51 10/02/19 24 10/02/2023 CBC/C OMPLE TE BLD COUNT W/DIF F basophils, absolute count 0.02 x10'3 /uL 0.01-0 .08 Not Available [facility] (Lab) [address] [place], [address], 10/02/2023 13:53:51 10/02/19 24 10/02/2023 CBC/C OMPLE TE BLD COUNT W/DIF F immature granulocytes ,absolute 0.02 x10'3 /uL 0.00-0 .05 Not Available [facility] (Lab) [address] [place], [address], 10/02/2023 13:53:51 10/02/19 24 10/02/2023 CBC/C OMPLE TE BLD COUNT W/DIF F nucleated red blood cells 0.0 % -0 Not Available [facility] (Lab) [address] [place], [address], 10/02/2023 13:53:51 10/02/19 24 10/02/2023 CBC/C OMPLE TE BLD COUNT W/DIF F NRBC# 0.00 x10'3 /uL Not Available [facility] (Lab) [address] [place], [address], 10/02/2023 13:53:51 10/02/19 24 10/02/2023 URINA LYSIS COMPL ETE/I RIS W/RFX color LIGHT- YELLOW Not Available [facility] (Lab) [address] [place], [address], 10/02/2023 14:39:59 10/02/19 24 10/02/2023 URINA LYSIS COMPL ETE/I RIS W/RFX appear CLEAR Not Available [facility] (Lab) [address] [place], [address], 10/02/2023 14:39:59 10/02/19 24 10/02/2023 URINA LYSIS COMPL ETE/I RIS W/RFX specific gravity 1.015 1.001- 1.030 Not Available [facility] (Lab) [address] [place], [address], 10/02/2023 14:39:59 10/02/19 24 10/02/2023 URINA LYSIS COMPL ETE/I RIS W/RFX pH 5.0 pH_un its 5.0-9. 0 Not Available [facility] (Lab) [address] [place], [address], 10/02/2023 14:39:59 10/02/19 24 10/02/2023 URINA LYSIS COMPL ETE/I RIS W/RFX leukocytes NEGATI VE jossie/u L negati ve- Not Available [facility] (Lab) [address] [place], [address], 10/02/2023 14:39:59 10/02/19 24 10/02/2023 URINA LYSIS COMPL ETE/I RIS W/RFX nitrite NEGATI VE negati ve- Not Available [facility] (Lab) [address] [place], [address], 10/02/2023 14:39:59 10/02/19 24 10/02/2023 URINA LYSIS COMPL ETE/I RIS W/RFX protein NEGATI VE mg/dL negati ve- Not Available [facility] (Lab) [address] [place], [address], 10/02/2023 14:39:59 10/02/19 24 10/02/2023 URINA LYSIS COMPL ETE/I RIS W/RFX glucose NORMAL mg/dL normal - Not Available [facility] (Lab) [address] [place], [address], 10/02/2023 14:39:59 10/02/19 24 10/02/2023 URINA LYSIS COMPL ETE/I RIS W/RFX ketones NEGATI VE mg/dL negati ve- Not Available [facility] (Lab) [address] [place], [address], 10/02/2023 14:39:59 10/02/19 24 10/02/2023 URINA LYSIS COMPL ETE/I RIS W/RFX urobilinogen NORMAL mg/dL normal - Not Available [facility] (Lab) [address] [place], [address], 10/02/2023 14:39:59 10/02/19 24 10/02/2023 URINA LYSIS COMPL ETE/I RIS W/RFX bilirubin NEGATI VE mg/dL negati ve- Not Available [facility] (Lab) [address] [place], [address], 10/02/2023 14:39:59 10/02/19 24 10/02/2023 URINA LYSIS COMPL ETE/I RIS W/RFX blood 0.06 mg/dL negati ve- abnormal Not Available [facility] (Lab) [address] [place], [address], 10/02/2023 14:39:59 10/02/19 24 10/02/2023 URINA LYSIS COMPL ETE/I RIS W/RFX white blood cells 0-8 /i??h pfi?? 0-8 Not Available [facility] (Lab) [address] [place], [address], 10/02/2023 14:39:59 10/02/19 24 10/02/2023 URINA LYSIS COMPL ETE/I RIS W/RFX red blood cells 0-4 /i??h pfi?? 0-4 Not Available [facility] (Lab) [address] [place], [address], 10/02/2023 14:39:59 10/02/19 24 10/02/2023 URINA LYSIS COMPL ETE/I RIS W/RFX bacteria NONE Not Available [facility] (Lab) [address] [place], [address], 10/02/2023 14:39:59 10/02/19 24 10/02/2023 URINA LYSIS COMPL ETE/I RIS W/RFX mucous OCCASI ONAL /i??l pfi?? abnormal Not Available [facility] (Lab) [address] [place], [address], 10/02/2023 14:39:59 10/02/19 24 10/02/2023 URINA LYSIS COMPL ETE/I RIS W/RFX squamous epithelial FEW /i??l pfi?? abnormal Not Available [facility] (Lab) [address] [place], [address], 10/02/2023 14:39:59 10/02/19 24 10/02/2023 URINA LYSIS COMPL ETE/I RIS W/RFX hyaline cast OCCASI ONAL /i??l pfi?? none seen- abnormal Not Available [facility] (Lab) [address] [place], [address], 10/02/2023 14:39:59 10/02/19 24 10/02/2023 TSH W/REF DINO FT4 TSH with reflex free T4 3.160 uIU/m L 0.465- 4.680 Not Available [facility] (Lab) [address] [place], [address], 10/02/2023 15:08:22 10/02/19 24 10/04/2023 VITAM IN D 25-HY DROXY vd25oh 19.5 NG/mL 30-100 low Vitam in D Statu s: Defic ient: <20 ng/mL Insuf ficie nt: 20-29 ng/mL Suffi cient : 30-10 0 ng/mL Not Available [facility] (Lab) [address] [place], [address], 10/04/2023 17:32:57 10/02/19 24 10/02/2023 VITAM IN B12 (TONY NCIKOLAS ) vb12 166 pg/mL 239-93 1 low Not Available [facility] (Lab) [address] [place], [address], 10/02/2023 19:42:52 10/02/19 24 10/02/2023 FOLAT E, SERUM /PLAS MA folate 5.10 NG/mL 2.76-2 0.0 Not Available [facility] (Lab) [address] [place], [address], 10/02/2023 19:42:53 10/02/19 24 10/02/2023 HEMOG LOBIN A1C HA1C 6.1 % 4.0-6. 0 high Diabe kiki Scree arabella Crite reuben: <5.7% Consi stent with absen ce of diabe kiki 5.7-6 .4% Consi stent with incre ased risk for diabe kiki (pred iabet es) >OR=6 .5% Consi stent with diabe kiki REFER ENCE: Diabe kiki Care 2016, 39([place] ppl.1 ):s13 -s22 Not Available [facility] (Lab) [address] [place], [address], 10/02/2023 21:05:23 Result Notes None recorded. Problems Name Problem SNOMED Code Status Onset Date Resolution Date Notes Provider Name and Address Organization Details Recorded Time Hypothyroid ism 14529758 Active 2022 Darinel Houser MD [address], [place], [address], [employer] 3 15:33:12 Gastroesoph ageal reflux disease without esophagitis 577843682 Active 2022 Darinel Houser MD [address], [place], [address], [employer] 15:33:42 Hyperlipide melita 23599932 Active 2022 Darinel Houser MD [address], [place], [address], [employer] 15:34:18 Hypertensiv e disorder 99965671 Active 2022 Darinel Houser MD [address], [place], [address], [employer] 15:35:28 Permanent cardiac pacemaker [id number] 02 Active 2022 Darinel Houser MD [address], [address], [employer] 3 15:56:03 Osteoarthri tis 978862524 Active 2022 Darinel Houser MD [address], [place], [address], [employer] 15:56:17 Impaired mobility 59952202 Active 2022 Darinel Houser MD [address], [place], [address], [employer] 3 15:56:27 Vertigo 364196934 Active 2023 Darinel Houser MD [address], [place], [address], [employer] 4 09:45:45 Vitamin D deficiency 27070683 Active 2023 Darinel Houser MD [address], [place], [address], [facility] [employer] [facility] 4 09:50:11 Obesity 109307001 Active 2023 Darinel Houser MD [address], [address], [place], [address], [facility] [employer] [facility] 4 10:05:25 Vitamin B12 deficiency (non anemic) 54879791 Active 2023 Darinel Houser MD [address], [address], [place], [address], [facility] [employer] [facility] 4 14:36:38 Problem Notes None recorded. Medical Equipment None Reported. Allergies No known drug allergies Medications Name Sig Start Date Stop Date Status Note LastModified by Organization Details LastModified Time atorvastati n 40 mg tablet TAKE 1/2 (ONE-HALF ) TABLET BY MOUTH ONCE DAILY 01/09 completed Not Available Not Available Not Available atorvastati n 20 mg tablet TAKE 1 TABLET BY MOUTH ONCE DAILY AT BEDTIME 2024 active Not Available Not Available Not Avai lable phenazopyri dine 200 mg tablet TAKE 1 TABLET BY MOUTH THREE TIMES DAILY NEEDED FOR PAIN FOR 3 DAYS 01/09 completed Not Available Not Available Not Available ondansetron HCl 4 mg tablet TAKE 1 TABLET BY MOUTH EVERY 8 HOURS NEEDED FOR NAUSEA AND FOR VOMITING 01/09 completed Not Available Not Available Not Available levothyroxi ne 75 mcg tablet TAKE 1 TABLET BY MOUTH ONCE DAILY active Not Available Not Available No t Available sodium bicarbonate 650 mg tablet TAKE 1 TABLET BY MOUTH TWICE DAILY 01/09 completed Not Available Not Available Not Available meclizine 25 mg tablet TAKE 1 TABLET BY MOUTH THREE TIMES DAILY active Not Available Not Available No t Available cyanocobala min (vit B-12) 1,000 mcg/mL injection solution Inject 1 mL every month by subcutane ous route for 1 day. 2023 active Not Available Not Available Not Avai lable omeprazole 20 mg capsule,del ayed release TAKE 1 CAPSULE BY MOUTH ONCE DAILY IN THE MORNING active Not Available Not Available No t Available furosemide 20 mg tablet 01/09 completed Not Available Not Available Not Available metoprolol succinate ER 25 mg tablet,exte nded release 24 hr TAKE 1 TABLET BY MOUTH ONCE DAILY AT BEDTIME active Not Available Not Available No t Available ergocalcife rol (vitamin D2) 1,250 mcg (50,000 unit) capsule TAKE 1 CAPSULE BY MOUTH ONCE A WEEK DIRECTED active Not Available Not Available No t Available azelastine 137 mcg (0.1 %) nasal spray USE 1 SPRAY(S) IN EACH NOSTRIL EVERY 12 HOURS 01/09 completed Not Available Not Available Not Available diltiazem 30 mg tablet TAKE 1 TABLET BY MOUTH TWICE DAILY active Not Available Not Available No t Available fluticasone propionate 50 mcg/actuati on nasal spray,suspe nsion USE 1 SPRAY(S) IN EACH NOSTRIL TWICE DAILY 02/06 completed Not Available Not Available Not Available olmesartan 40 mg-hydrochl orothiazide 12.5 mg tablet TAKE 1 TABLET BY MOUTH ONCE DAILY IN THE MORNING active Not Available Not Available No t Available Eliquis 5 mg tablet TAKE 1 TABLET BY MOUTH TWICE DAILY active Not Available Not Available No t Available Vitals Date Recorded Body height Body mass index (BMI) Body weight Body temperature Heart rate Respiratory rate Oxygen saturation Oxygen saturation in Arterial blood by Pulse oximetry Systolic blood pressure Diastolic blood pressure Provider Name and Address Organization Details Last Updated DateTime 3 149.86 cm 32.6 kg/m2 00840.1 7 g 97.3 [degF] 88 /min 20 /min 96 % 96 % 126 mm[Hg] 70 mm[Hg] Jc Patricia [place] [employer] [facility] 3 15:17:12 Date Recorded Body height Body mass index (BMI) Body weight Body temperature Heart rate Respiratory rate Oxygen saturation Oxygen saturation in Arterial blood by Pulse oximetry Systolic blood pressure Diastolic blood pressure Provider Name and Address Organization Details Last Updated DateTime 4 149.86 cm 32.9 kg/m2 05204.2 6 g 98.1 [degF] 84 /min 16 /min 99 % 99 % 136 mm[Hg] 78 mm[Hg] Jc Patricia [employer] [facility] 4 09:35:17 Date Recorded Body height Body mass index (BMI) Body weight Body temperature Heart rate Respiratory rate Oxygen saturation Oxygen saturation in Arterial blood by Pulse oximetry Systolic blood pressure Diastolic blood pressure Provider Name and Address Organization Details Last Updated DateTime 4 149.86 cm 33.6 kg/m2 78405.0 5 g 97.7 [degF] 80 /min 16 /min 97 % 97 % 136 mm[Hg] 80 mm[Hg] Jc HARDEN [facility] [employer] 4 14:31:55 Social History Question Answer Notes LastModified by Organizat ion Details LastModified Time Tobacco Smoking Status Never Smoker Jc gutierres [facility] 01/09/2023 15:17:49 What Is Your Code Status? Full Code Information not available 01/09/2023 In The 14 Days Before Symptom Onset, Have You Had Close Contact With A Laboratory-confirm ed COVID-19 While That Case Was Ill? No Information n ot available 01/09/2023 In The 14 Days Before Symptom Onset, Have You Had Close Contact With A Person Who Is Under Investigation For COVID-19 While That Person Was Ill? No Information not available 01/09/2023 Are You Currently Employed? No Information not available 01/09/2023 What Type Of Diet Are You Following? REGULAR Information n ot available 01/09/2023 What Is The Highest Grade Or Level Of School You Have Completed Or The Highest Degree You Have Received? [id number] Information not available 01/09/2023 Have There Been Any Changes To Your Family Or Social Situation? No Information no t available 01/09/2023 How Many Children Do You Have? 2 Information not available 01/09/2023 Do You Have Any Pets? No Information not available 01/09/2023 What Is Your Relationship Status? Information not available 01/09/2023 Are You Sexually Active? No Information not available 01/09/2023 Do You Have Smoke And Carbon Monoxide Detectors In Your Home? Yes Information not available 01/09/2023 Do You Feel Stressed (tense, Restless, Nervous, Or Anxious, Or Unable To Sleep At Night)? [id number] Information not available 01/09/2023 Have You Recently Traveled Abroad? No Information not available 01/09/2023 Are You Currently In School? No Information not available 01/09/2023 Sex: Female Functional Status Question Answer Note LastModified by Organization D etails LastModified Time Are you able to care for yourself? Yes Information n ot available 01/09/2023 Mental Status None recorded. Family History Nothing Reported. Medical History Condition Response BLINDNESS N RHEUMATIC FEVER N KIDNEY STONES N BLADDER PROBLEMS N MRSA N OTHER # 1 N POLIO N LUNG DISEASE/DISORDER N HISTORY OF DRUG ABUSE N RADIATION / CHEMOTHERAPY N COPD N Other # 2 N BLOOD DISEASES N SURGERY N EAR OR HEARING PROBLEMS N MUMPS N SHINGLES N BOWEL PROBLEMS N FEMALE PROBLEMS / INFECTIONS N DEPRESSION (INCLUDING POST ) N FAILED BACK SYNDROME N STROKE/TIA N THYROID DISEASE N ULCERS N BENIGN PROSTATIC HYPERPLASIA N MEASLES N CERVICALGIA N HYPOTENSION N TB SKIN TEST N MYOCARDIAL INFARCTION N PARAPELGIA N OBESITY N GERD/NAUSEA N ANEURYSM N URINARY/BLADDER/KIDNEY PROBLEMS N CORONARY ARTERY DISEASE (CAD) N MENIERE'S DISEASE N Do you have Advance directive? N ADDICTION CONCERNS N ENDOMETRIOSIS N USE OF BLOOD THINNERS N SKIN PROBLEMS N EMPHYSEMA N GASTROINTESTINAL DISORDER N PERIPHERAL ARTERY DISEASE N MUSCLE,JOINT OR BONE PROBLEMS N GASTROINTESTINAL BLEEDING N BLOOD CLOTS N ASTHMA N Abdominal Pain N CATARACTS N ARTERIAL INSUFFICIENCY N ERECTILE DYSFUNCTION N GI PROBLEMS N CHF N Low Testosterone N NEUROPATHY N INFERTILITY N AIDS/HIV N FRACTURES N CHEMOTHERAPY / RADIATION N VISION/EYE PROBLEMS N LIVER DISEASE N HYPERTENSION N TOURETTE'S N ANXIETY DISORDER N BLOOD TRANSFUSION N ANEMIA/BLOOD DISORDER N CHRONIC EAR INFECTIONS N BRONCHITIS N TUBERCULOSIS N GLAUCOMA N FOOT PROBLEM N DIVERTICULITIS N CHICKENPOX N SLEEP APNEA N BACK INJECTIONS N ALLERGIES/HAYFEVER N INFECTIOUS DISEASE N HEART ARRHYTHMIA N PROSTATE N ESRD N INSOMNIA N HIGH CHOLESTEROL / HYPERLIPIDEMIA N HYPERTHYROIDISM N EYE PROBLEMS N PVD N EATING DISORDER N EDEMA N CHRONIC PAIN SYNDROME N CAROTID BLOCKAGE N CONSTIPATION N BACK / NECK PROBLEMS N HAVE YOU BEEN HOSPITALIZED OR SEEN IN [facility] IN THE PAST YEAR ? N ATHEROSCLEROSIS N BREAST PROBLEMS N DIALYSIS N POLYCYSTIC OVARIES N ECZEMA N FIBROMYALGIA N OSTEOPOROSIS N ARTHRITIS N NO SIGNIFICANT PAST MEDICAL HISTORY N APPENDICITIS N DIABETES, TYPE N BAD TEETH N VON WILLIBRAND'S DISEASE N HEARTBURN / REFLUX N ADD/ADHD N AUTISM SPECTRUM DISORDER (ASD) N POST LAMINECTOMY SYNDROME N HEPATITIS / LIVER DISEASE N PULMONARY DISEASE N GOUT N SLEEP DISORDER N ALZHEIMER'S DISEASE N PAIN N HERPES N DEMENTIA N HEADACHES/MIGRAINES N SEIZURES/EPILEPSY N VASCULAR DISEASE N PACEMAKER N DIZZINESS N HEART DISEASE/HEART PROBLEMS N KIDNEY DISEASE N DEVELOPMENTAL OR BEHAVIORAL DISORDERS N MULTIPLE SCLEROSIS N SCARLET FEVER N MENTAL DISORDER/ILLNESS N NEUROPSYCHOLOGICAL N CARDIAC ARRHYTHMIA N CANCER: SPECIFY N PNEUMONIA N ATRIAL FIBRILLATION N Gall Stones N PULMONARY EMBOLISM N AUTOIMMUNE DISEASE N Past Encounters Encounter ID Performer Location Encounter Start Date Encounter Closed Date Diagnosis/Indication Diagnosis SNOMED-CT Code Diagnosis ICD10 Code Diagnosis Note [id number] Darinel Houser MD [address] [address] 01/09/2023 14:51:33 01/09/2023 16:04:20 Hypothyroidism 29513186 E03.9 Gastroesop hageal reflux disease without esophagitis 896382341 K21.9 Hyperlipidemia 58922058 E78.5 Permanent cardiac pacemaker 9575933626 86363 Z95.0 History Hypertensive disorder 38 789140 I10 Osteoarthritis 121821677 M19.90 Impaired mobility 886425 05 Z74.09 [id number] Darinel Houser MD [address] [address] 09/05/2023 09:18:35 09/05/2023 10:09:02 Hypertensive disorder 75839553 I10 Permanent cardiac pacemaker 4083685682 38760 Z95.0 History Hyperlipidemia 55866869 E78.5 Hypothyroidism 72502653 E03.9 Gastroesop hageal reflux disease without esophagitis 411119144 K21.9 Osteoarthritis 170818805 M19.90 Impaired mobility 939085 05 Z74.09 Vertigo 135739529 R42 Vitamin D deficiency 347 08482 E55.9 Obesity 967494090 E66.9 [id number] Darinel Houser MD [address] [address] 10/02/2023 09:37:30 10/02/2023 10:25:56 [id number] Darinel Houser MD [address] [place] [address] 10/21/2023 14:20:44 10/21/2023 14:45:50 Hypertensive disorder 07687032 I10 Permanent cardiac pacemaker 9646195504 48318 Z95.0 History Hyperlipidemia 21161008 E78.5 Hypothyroidism 41773398 E03.9 Gastroesop hageal reflux disease without esophagitis 335458365 K21.9 Osteoarthritis 809687604 M19.90 Impaired mobility 608235 05 Z74.09 Vitamin D deficiency 347 56046 E55.9 Obesity 460936708 E66.9 Vitamin B1 2 deficiency (non anemic) 46896902 E53.8 Health Concerns Section Related Observation LastModified by Organization Detai ls LastModified Time None Recorded Concern Status LastModified by Organization Details LastModified Time None Recorded Advance Directives Directive None Recorded Payers Encounter Date Sequence Insurance Name Policy Number Policy Abel Covered Member ID Abel Member ID Guarantor Name 01/09/2023 2 [place] Zaverben C Houser [id number] Zaverben Houser 01/09/2023 1 [facility] (MEDICARE REPLACEMENT/ ADVANTAGE - HMO) [id number] Zaverben C Houser [id number] Zaverben Houser 09/05/2023 2 [place] Zaverben C Houser [id number] Zaverben Houser 09/05/2023 1 [facility] (MEDICARE REPLACEMENT/ ADVANTAGE - HMO) [id number] Zaverben C Houser [id number] Zaverben Houser 10/02/2023 2 [place] Zaverben C Houser [id number] Zaverben Houser 10/02/2023 1 [facility] (MEDICARE REPLACEMENT/ ADVANTAGE - HMO) [id number] Zaverben C Houser [id number] Zaverben Houser 10/21/2023 2 [place] Zaverben C Houser [id number] Luzma Houser 10/21/2023 1 [facility] (MEDICARE REPLACEMENT/ ADVANTAGE - HMO) [id number] Luzma Houser [id number] Luzma Houser Notes Date Note Type Note Provider Name and Address Organization Details Recorded Time 01/09/2023 text/html New pt visit:77 yo F is here with her grand daughter to establish her care. Pt was seeing PCP at [place] in the past.Doing overall well. Needs refill on her meds. Pt has h/o cardiac pacemaker placed and she is f/u with Cardio at [place] for it.PMH, FH and SH reviewed. Darinel Houser MD [address], [place], [address], [employer] 01/09/2023 15:58:13 09/05/2023 text/html Pt is here with family for f/u on her meds and chronic conditions. Doing overall well. Needs refill on her meds. Last visit in 01/28. Pt has h/o cardiac pacemaker placed and she is f/u with Cardio at [place] for it. Darinel Houser MD [address], [place], [address], [employer] 09/05/2023 10:08:46 10/21/2023 text/html Pt is here with son for f/u on her annual labs. Doing overall well. Denies any problem with meds. Denies any new concern. Denies any more dizziness and she is back to her normal. Pt has h/o cardiac pacemaker placed and she is f/u with Cardio at [place] for it. Darinel Houser MD [address], [place], [address], [employer] 10/21/2023 14:45:11
[2024-07-27 12:13] LABS: Total Volume 24 Hour Urine 2950 ml; Urea Nitrogen 24 Hour Urine 4.8 G/DAY (12-20)
[2024-07-29 05:13] LABS: Creat 24 Hr 0.91 g/24 h (0.50-2.15); Pro/Creat Ratio 129 mg/g creat (<150); Pro/Creat Ratio mg/mg 0.129 (<0.150); Protein,total, 24 Hr Ur 118 mg/24 h (<150)
== END 2024-07-27 10:33 | disposition home or self-care (01) ==
PROVIDERS: PCP Family Medicine; Visit Provider Internal Medicine Nephrology
DX: N18.32 Chronic kidney disease, stage 3b (principal)
CPT/HCPCS: 81050; 84540; 86335

== ENCOUNTER 2024-08-04 11:23 | Outpatient (CLI) | payer MEDICARE, MEDICAID, SELFPAY ==
[2024-08-04 12:07] LABS: Rheumatoid Factor 12.4 IU/ML (<12)
[2024-08-04 12:14] LABS: Erythrocyte Sedimentation Rate 19 mm/hr (0-20)
--- OUTSIDE RECORDS SUMMARY | 2024-08-04 12:51 | XMS_ITS | Clinical Summary ---
Author Organization [facility] Address [address] [place] [address] Care Team Providers Care Profile Grinder Name Role Phone Preeti So MD Unavailable [phone] Preeti So MD Primary Care Provider [phone] Source Comments [facility],non-owned Affiliates and Associated Physician Practices is amultiple site organization consisting of ambulatory clinics and hospital sitesin [place], [place], [place] and [place]. This disclosure is being madepursuant to the Care Everywhere program and may not contain all information available regarding this patient. Last updated 17.[facility] Allergies No known active allergies Medications * [...] age to complete this topic Insurance MEDICARE [place] [employer] [place] ADV MEDICA[place] - PENDING [place] [employer] ADV Care Teams Profile Grinder Relationship Specialty Start Date End Date Preeti So MD [address] [place] [address] PCP - General 08/15/23 Preeti So MD [address] [place] [id number] Family Medicine 10/08/19
--- OUTSIDE RECORDS SUMMARY | 2024-08-04 12:51 | XMS_ITS | Data Portability ---
Author Organization [facility] [employer], Main Office Address [address] [place] [address] Care Team Providers Care Power System Engineer Name Role Phone DARINEL HOUSER Primary Care [...] time. Pt is planning to go to [facility] next month. All meds verified with them. Meds as directed. Diet and exercise explained in detail. BP diary education given and call us if any concerns. Fall risk precautions explained. Cont f/u with Cardio at [place] as per schedule. HM: WWE - Pt declined. Mammo - Pt declined. Colonoscopy - Pt declined. DEXA - Pt declined. Flu - 12/29. Tdap, Pneumo, Shingrix - At pharmacy/HD. F/u in 3-4 months. Annual labs in 01/29. Not available 01/09/2023 15:57:40 09/05/2023 09/05/2023 77 [...] precautions explained. Cont f/u with Cardio at [place] as per schedule. HM: WWE - Pt declined. Mammo - Pt declined. Colonoscopy - Pt declined. DEXA - Pt declined. Flu - 12/29. Tdap, Pneumo, Shingrix - At pharmacy/HD. F/u in 3-4 weeks. Annual labs in 09/30. [email or web address] Not available 09/05/2023 10:08:33 10/21/2023 10/21/2023 77 [...] precautions explained. Cont f/u with Cardio at [place] as per schedule. HM: WWE - Pt declined. Mammo - Pt declined. Colonoscopy - Pt declined. DEXA - Pt declined. Flu - 12/29. Tdap, Pneumo, Shingrix - At pharmacy/HD. F/u in 3-6 months. Annual labs in 09/30. [email or web address] Not available 10/21/2023 14:44:57 Plan of Treatment Reminders Order Date Submit Date Provider Last Modified By Organization Details Last Modified Time Details Appointments None recorded. Lab vitamin B12 + folate, serum or blood [address] (Lab), [address] [place], [address], 4 08:04:29 HbA1c (hemoglobin A1c), blood [address] (Lab), [address] [place], [address], 4 08:04:29 uric acid, serum or plasma [address] (Lab), [address] [place], [address], 4 08:04:29 CBC w/ auto diff [address] (Lab), [address] [place], [address], 4 08:04:28 CMP, serum or plasma [address] (Lab), [address] [place], [address], 4 08:04:28 urinalysis complete, reflex culture [address] (Lab), [address] [place], [address], 4 08:04:28 lipid panel, serum [address] (Lab), [address] [place], [address], 4 08:04:28 vitamin D, 25-hydroxy, total, serum [address] (Lab), [address] [place], [address], 4 08:04:29 TSH, serum or plasma [address] (Lab), [address] [place], [address], 4 08:04:28 Referral None recorded. Procedures None recorded. Surgeries None recorded. Imaging None recorded. Medication Orders cyanocobala min (vit B-12) 1,000 mcg/mL injection solution 2023 [email or web address] Not available 15:35:53 olmesartan 40 mg-hydrochl orothiazide 12.5 mg tablet 2023 [facility], [address], [place], [address], 4 14:39:39 metoprolol succinate ER 25 mg tablet,exte nded release 24 hr 2023 [facility], [address], [place], [place], [address], 4 14:39:40 ergocalcife rol (vitamin D2) 1,250 mcg (50,000 unit) capsule 2023 024 [facility], [address], [place], [address], 4 14:39:38 omeprazole 20 mg capsule,del ayed release 2023 024 [facility], [address], [place], [place], [address], 4 14:39:41 atorvastati n 20 mg tablet 2023 024 [facility], [address], [place], [place], [address], 4 14:39:39 levothyroxi ne 75 mcg tablet 2023 024 [facility], [address], [place], [place], [address], 4 14:39:39 olmesartan 40 mg-hydrochl orothiazide 12.5 mg tablet 2023 024 [facility], [address], [place], [address], 4 09:48:48 metoprolol succinate ER 25 mg tablet,exte nded release 24 hr 2023 [facility], [address], [place], [place], [address], 4 09:48:47 atorvastati n 20 mg tablet 2023 024 [facility], [address], [place], [address], 4 09:48:44 meclizine 25 mg tablet 2023 024 [facility], [address]ios, [place], [address], 4 09:48:46 omeprazole 20 mg capsule,del ayed release 2023 024 [facility], [address], [place], [place], [address], 4 09:48:45 levothyroxi ne 75 mcg tablet [email or web address] [facility], [address]ios, [place], [address], 4 09:49:04 olmesartan 40 mg-hydrochl orothiazide 12.5 mg tablet 2022 023 [facility], [address], [place], [address], 3 15:36:53 metoprolol succinate ER 25 mg tablet,exte nded release 24 hr 2022 023 [facility], [address], [place], [place], [address], 3 15:36:56 omeprazole 20 mg capsule,del ayed release 2022 023 [facility], [address], [place], [address], 15:36:53 atorvastati n 20 mg tablet 2022 023 [facility], [address], [place], [address], 15:36:57 levothyroxi ne 75 mcg tablet 2022 023 [facility], [address], [place], [address], 15:36:55 Patient TargetsNo targets recorded. Patient InstructionsNo instructions recorded. Reason for Referral None Reported. Results Created Date Observation Date Name Description Value Unit Range Abnormal Flag Note LastModifiedBy Organization Detail LastModifiedTime 10/02/1910/02/2023 COMPR EHENS ROIHTH METAB OLIC PANEL sodium 138 mmol/ L 137-14 5 Not Available [facility] (Lab) [address] [place], [address], 10/02/2023 13:46:24 10/02/19 24 10/02/2023 COMPR EHENS ROHITH METAB OLIC PANEL potassium 4.6 mmol/ L 3.5-5. 1 Not Available [facility] (Lab) [address] [place], [address], 10/02/2023 13:46:24 10/02/19 24 10/02/2023 COMPR EHENS ROHITH METAB OLIC PANEL chloride 106 mmol/ L 98-107 Not Available [facility] (Lab) [address] [place], [address], 10/02/2023 13:46:24 10/02/19 24 10/02/2023 COMPR EHENS ROHITH METAB OLIC PANEL carbon dioxide 25 mmol/ L 22-30 Not Available [facility] (Lab) [address] [place], [address], 10/02/2023 13:46:24 10/02/19 24 10/02/2023 COMPR EHENS ROHITH METAB OLIC PANEL anion gap 11.6 mmol/ L 14-22 low Not Available [facility] (Lab) [address] [place], [address], 10/02/2023 13:46:24 10/02/19 24 10/02/2023 COMPR EHENS ROHITH METAB OLIC PANEL glucose 92 mg/dL 70-99 Not Available [facility] (Lab) [address] [place], [address], 10/02/2023 13:46:24 10/02/19 24 10/02/2023 COMPR EHENS ROHITH METAB OLIC PANEL BUN 18 mg/dL 8-19 Not Available [facility] (Lab) [address] [place], [address], 10/02/2023 13:46:24 10/02/19 24 10/02/2023 COMPR EHENS ROHITH METAB OLIC PANEL creatinine 1.24 mg/dL 0.66-1 .25 Not Available [facility] (Lab) [address] [place], [address], 10/02/2023 13:46:24 10/02/19 24 10/02/2023 COMPR EHENS ROHITH METAB OLIC PANEL GFR 57 Refer ence Range : Nellis ge GFR Healt hy Adult : >60 [...] calcu lator is avail able on the [facility] websi te: [email or web address] :[email or web address] [email or web address] [email or web address] rg/pr ofess ional s/kdo qi/gf r_cal culat or Not Available [facility] (Lab) [address] [place], [address], 10/02/2023 13:46:24 10/02/19 24 10/02/2023 COMPR EHENS ROHITH METAB OLIC PANEL alkaline phosphatase 91 U/L 38-126 Not Available [facility] (Lab) [address] [place], [address], 10/02/2023 13:46:24 10/02/19 24 10/02/2023 COMPR EHENS ROHITH METAB OLIC PANEL alanine aminotransfe rase 21 U/L 0-50 Not Available [facility] (Lab) [address] [place], [address], 10/02/2023 13:46:24 10/02/19 24 10/02/2023 COMPR EHENS ROHITH METAB OLIC PANEL aspartate aminotransfe rase 36 U/L 15-46 Not Available [facility] (Lab) [address] [place], [address], 10/02/2023 13:46:24 10/02/19 24 10/02/2023 COMPR EHENS ROHITH METAB OLIC PANEL bilirubin, total 0.60 mg/dL 0.20-1 .30 Not Available [facility] (Lab) [address] [place], [address], 10/02/2023 13:46:24 10/02/19 24 10/02/2023 COMPR EHENS ROHITH METAB OLIC PANEL calcium 9.1 mg/dL 8.4-10 .2 Not Available [facility] (Lab) [address] [place], [address], 10/02/2023 13:46:24 10/02/19 24 10/02/2023 COMPR EHENS ROHITH METAB OLIC PANEL total protein 7.3 g/dL 6.3-8. 2 Not Available [facility] (Lab) [address] [place], [address], 10/02/2023 13:46:24 10/02/19 24 10/02/2023 COMPR EHENS ROHITH METAB OLIC PANEL albumin 4.2 g/dL 3.0-4. 4 Not Available [facility] (Lab) [address] [place], [address], 10/02/2023 13:46:24 10/02/19 24 10/02/2023 COMPR EHENS ROHITH METAB OLIC PANEL globulin 3.1 g/dL 2.6-4. 2 Not Available [facility] (Lab) [address] [place], [address], 10/02/2023 13:46:24 10/02/19 24 10/02/2023 COMPR EHENS ROHITH METAB OLIC PANEL A/G ratio 1.4 ratio 1.0-2. 0 Not Available [facility] (Lab) [address] [place], [address], 10/02/2023 13:46:24 10/02/19 24 10/02/2023 URIC ACID SERUM uric acid 7.2 mg/dL 3.5-8. 5 Not Available [facility] (Lab) [address] [place], [address], 10/02/2023 13:46:26 10/02/19 24 10/02/2023 LIPID PANEL cholesterol 151 mg/dL 140-19 9 NIH MIKE NSUS RECOM MENDA TION FOR ETTA STERO L: ADULT CHILD LOW RISK: <200 <170 BORDE RLINE : <200- 239 ----- HIGH RISK: >240 >200 Not Available [facility] (Lab) [address] [place], [address], 10/02/2023 13:46:31 10/02/19 24 10/02/2023 LIPID PANEL triglyceride s 149 mg/dL 0-150 NIH MIKE NSUS REPOR T RECOM MENDA TION FOR TRIGL YCERI AR: ADULT CHILD LOW RISK: <150 ----- BODER LINE: 150-1 99 ----- HIGH RISK: >200 ----- Not Available [facility] (Lab) [address] [place], [address], 10/02/2023 13:46:31 10/02/19 24 10/02/2023 LIPID PANEL HDL cholesterol 50 mg/dL 40- Not Available [facility] (Lab) [address] [place], [address], 10/02/2023 13:46:31 10/02/19 24 10/02/2023 LIPID PANEL [...] WILL NOT BE REPOR TWYLA. Not Available [facility] (Lab) [address] [place], [address], 10/02/2023 13:46:31 10/02/19 24 10/02/2023 CBC/C OMPLE TE BLD COUNT W/DIF F white blood cells 7.3 x10'3 /uL 4.2-10 .8 Not Available [facility] (Lab) [address] [place], [address], 10/02/2023 13:53:51 10/02/19 24 10/02/2023 CBC/C OMPLE TE BLD COUNT W/DIF F red blood cells 4.44 x10'6 /uL 4.10-5 .80 Not Available [facility] (Lab) [address] [place], [address], 10/02/2023 13:53:51 10/02/19 24 10/02/2023 CBC/C OMPLE TE BLD COUNT W/DIF F hemoglobin 11.4 g/dL 13.2-1 7.0 low Not Available [facility] (Lab) [address] [place], [address], 10/02/2023 13:53:51 10/02/19 24 10/02/2023 CBC/C OMPLE TE BLD COUNT W/DIF F hematocrit 35.4 % 39.3-5 0.0 low Not Available [facility] (Lab) [address] [place], [address], 10/02/2023 13:53:51 10/02/19 24 10/02/2023 CBC/C OMPLE TE BLD COUNT W/DIF F mean red cell volume 79.7 fL 80.0-9 7.0 low Not Available [facility] (Lab) [address] [place], [address], 10/02/2023 13:53:51 10/02/19 24 10/02/2023 CBC/C OMPLE TE BLD COUNT W/DIF F mean red cell hemoglobin 25.7 pg 27.0-3 3.0 low Not Available [facility] (Lab) [address] [place], [address], 10/02/2023 13:53:51 10/02/19 24 10/02/2023 CBC/C OMPLE TE BLD COUNT W/DIF F mean RBC HGB concentratio n 32.2 g/dL 31.0-3 6.0 Not Available [facility] (Lab) [address] [place], [address], 10/02/2023 13:53:51 10/02/19 24 10/02/2023 CBC/C OMPLE TE BLD COUNT W/DIF F red cell distribution width 17.1 % 11.8-1 5.5 high Not Available [facility] (Lab) [address] [facility] [place], [address], 10/02/2023 13:53:51 10/02/19 24 10/02/2023 CBC/C OMPLE TE BLD COUNT W/DIF F platelets 220 x10'3 /uL 150-40 0 Not Available [facility] (Lab) [address] [place], [address], 10/02/2023 13:53:51 10/02/19 24 10/02/2023 CBC/C OMPLE TE BLD COUNT W/DIF F mean platelet volume 11.5 fL 9.0-12 .4 Not Available [facility] (Lab) [address] [place], [address], 10/02/2023 13:53:51 10/02/19 24 10/02/2023 CBC/C OMPLE TE BLD COUNT W/DIF F neutrophils 62.9 % 39.0-7 2.0 Not Available [facility] (Lab) [address] [place], [address], 10/02/2023 13:53:51 10/02/19 24 10/02/2023 CBC/C OMPLE TE BLD COUNT W/DIF F lymphocytes 27.6 % 16.0-4 7.0 Not Available [facility] (Lab) [address] [place], [address], 10/02/2023 13:53:51 10/02/19 24 10/02/2023 CBC/C OMPLE TE BLD COUNT W/DIF F monocytes 6.3 % 5.0-12 .0 Not Available [facility] (Lab) [address] [place], [address], 10/02/2023 13:53:51 10/02/19 24 10/02/2023 CBC/C OMPLE TE BLD COUNT W/DIF F eosinophils 2.6 % 1.0-7. 0 Not Available [facility] (Lab) [address] [place], [address], 10/02/2023 13:53:51 10/02/19 24 10/02/2023 CBC/C OMPLE TE BLD COUNT W/DIF F basophils 0.3 % 0.0-2. 0 Not Available [facility] (Lab) [address] [place], [address], 10/02/2023 13:53:51 10/02/19 24 10/02/2023 CBC/C OMPLE TE BLD COUNT W/DIF F immature granulocytes 0.3 % 0.00-0 .50 Not Available [facility] (Lab) [address] [place], [address], 10/02/2023 13:53:51 10/02/19 24 10/02/2023 CBC/C OMPLE TE BLD COUNT W/DIF F neutrophils, absolute count 4.61 x10'3 /uL 1.5-8. 0 Not Available [facility] (Lab) [address] [place], [address], 10/02/2023 13:53:51 10/02/19 24 10/02/2023 CBC/C OMPLE TE BLD COUNT W/DIF F lymphocytes, absolute count 2.02 x10'3 /uL 1.07-3 .43 Not Available [facility] (Lab) [address] [place], [address], 10/02/2023 13:53:51 10/02/19 24 10/02/2023 CBC/C OMPLE TE BLD COUNT W/DIF F monocytes, absolute count 0.46 x10'3 /uL 0.29-0 .99 Not Available [facility] (Lab) [address] [place], [address], 10/02/2023 13:53:51 10/02/19 24 10/02/2023 CBC/C OMPLE TE BLD COUNT W/DIF F eosinophils, absolute count 0.19 x10'3 /uL 0.02-0 .53 Not Available [facility] (Lab) [address] [place], [address], 10/02/2023 13:53:51 10/02/19 24 10/02/2023 CBC/C OMPLE TE BLD COUNT W/DIF F basophils, absolute count 0.02 x10'3 /uL 0.01-0 .08 Not Available [facility] (Lab) [address] [place], [address], 10/02/2023 13:53:51 10/02/19 24 10/02/2023 CBC/C OMPLE TE BLD COUNT W/DIF F immature granulocytes ,absolute 0.02 x10'3 /uL 0.00-0 .05 Not Available [facility] (Lab) [address] [place], [address], 10/02/2023 13:53:51 10/02/19 24 10/02/2023 CBC/C OMPLE TE BLD COUNT W/DIF F nucleated red blood cells 0.0 % -0 Not Available [facility] (Lab) [address] [place], [address], 10/02/2023 13:53:51 10/02/19 24 10/02/2023 CBC/C OMPLE TE BLD COUNT W/DIF F NRBC# 0.00 x10'3 /uL Not Available [facility] (Lab) [address] [place], [address], 10/02/2023 13:53:51 10/02/19 24 10/02/2023 URINA LYSIS COMPL ETE/I RIS W/RFX color LIGHT- YELLOW Not Available [facility] (Lab) [address] [place], [address], 10/02/2023 14:39:59 10/02/19 24 10/02/2023 URINA LYSIS COMPL ETE/I RIS W/RFX appear CLEAR Not Available [facility] (Lab) [address] [place], [address], 10/02/2023 14:39:59 10/02/19 24 10/02/2023 URINA LYSIS COMPL ETE/I RIS W/RFX specific gravity 1.015 1.001- 1.030 Not Available [facility] (Lab) [address] [place], [address], 10/02/2023 14:39:59 10/02/19 24 10/02/2023 URINA LYSIS COMPL ETE/I RIS W/RFX pH 5.0 pH_un its 5.0-9. 0 Not Available [facility] (Lab) [address] [place], [address], 10/02/2023 14:39:59 10/02/19 24 10/02/2023 URINA LYSIS COMPL ETE/I RIS W/RFX leukocytes NEGATI VE jossie/u L negati ve- Not Available [facility] (Lab) [address] [place], [address], 10/02/2023 14:39:59 10/02/19 24 10/02/2023 URINA LYSIS COMPL ETE/I RIS W/RFX nitrite NEGATI VE negati ve- Not Available [facility] (Lab) [address] [place], [address], 10/02/2023 14:39:59 10/02/19 24 10/02/2023 URINA LYSIS COMPL ETE/I RIS W/RFX protein NEGATI VE mg/dL negati ve- Not Available [facility] (Lab) [address] [place], [address], 10/02/2023 14:39:59 10/02/19 24 10/02/2023 URINA LYSIS COMPL ETE/I RIS W/RFX glucose NORMAL mg/dL normal - Not Available [facility] (Lab) [address] [place], [address], 10/02/2023 14:39:59 10/02/19 24 10/02/2023 URINA LYSIS COMPL ETE/I RIS W/RFX ketones NEGATI VE mg/dL negati ve- Not Available [facility] (Lab) [address] [place], [address], 10/02/2023 14:39:59 10/02/19 24 10/02/2023 URINA LYSIS COMPL ETE/I RIS W/RFX urobilinogen NORMAL mg/dL normal - Not Available [facility] (Lab) [address] [place], [address], 10/02/2023 14:39:59 10/02/19 24 10/02/2023 URINA LYSIS COMPL ETE/I RIS W/RFX bilirubin NEGATI VE mg/dL negati ve- Not Available [facility] (Lab) [address] [place], [address], 10/02/2023 14:39:59 10/02/19 24 10/02/2023 URINA LYSIS COMPL ETE/I RIS W/RFX blood 0.06 mg/dL negati ve- abnormal Not Available [facility] (Lab) [address] [place], [address], 10/02/2023 14:39:59 10/02/19 24 10/02/2023 URINA LYSIS COMPL ETE/I RIS W/RFX white blood cells 0-8 /i??h pfi?? 0-8 Not Available [facility] (Lab) [address] [place], [address], 10/02/2023 14:39:59 10/02/19 24 10/02/2023 URINA LYSIS COMPL ETE/I RIS W/RFX red blood cells 0-4 /i??h pfi?? 0-4 Not Available [facility] (Lab) [address] [place], [address], 10/02/2023 14:39:59 10/02/19 24 10/02/2023 URINA LYSIS COMPL ETE/I RIS W/RFX bacteria NONE Not Available [facility] (Lab) [address] [place], [address], 10/02/2023 14:39:59 10/02/19 24 10/02/2023 URINA LYSIS COMPL ETE/I RIS W/RFX mucous OCCASI ONAL /i??l pfi?? abnormal Not Available [facility] (Lab) [address] [place], [address], 10/02/2023 14:39:59 10/02/19 24 10/02/2023 URINA LYSIS COMPL ETE/I RIS W/RFX squamous epithelial FEW /i??l pfi?? abnormal Not Available [facility] (Lab) [address] [place], [address], 10/02/2023 14:39:59 10/02/19 24 10/02/2023 URINA LYSIS COMPL ETE/I RIS W/RFX hyaline cast OCCASI ONAL /i??l pfi?? none seen- abnormal Not Available [facility] (Lab) [address] [place], [address], 10/02/2023 14:39:59 10/02/19 24 10/02/2023 TSH W/REF DINO FT4 TSH with reflex free T4 3.160 uIU/m L 0.465- 4.680 Not Available [facility] (Lab) [address] [place], [address], 10/02/2023 15:08:22 10/02/19 24 10/04/2023 VITAM IN D 25-HY DROXY [id number] 19.5 NG/mL 30-100 low Vitam in D Statu s: Defic ient: <20 ng/mL Insuf ficie nt: 20-29 ng/mL Suffi cient : 30-10 0 ng/mL Not Available [facility] (Lab) [address] [place], [address], 10/04/2023 17:32:57 10/02/19 24 10/02/2023 VITAM IN B12 (TONY NICKOLAS ) vb12 166 pg/mL 239-93 1 low Not Available [facility] (Lab) [address] [place], [address], 10/02/2023 19:42:52 10/02/19 24 10/02/2023 FOLAT E, SERUM /PLAS MA folate 5.10 NG/mL 2.76-2 0.0 Not Available [facility] (Lab) [address] [place], [address], 10/02/2023 19:42:53 10/02/19 24 10/02/2023 HEMOG LOBIN A1C HA1C 6.1 % 4.0-6. 0 high Diabe kiki Scree arabella Crite reuben: <5.7% Consi stent with absen ce of diabe kiki 5.7-6 .4% Consi stent with incre ased risk for diabe kiki (pred iabet es) >OR=6 .5% Consi stent with diabe kiki REFER ENCE: Diabe kiki Care 2016, 39([place] ppl.1 ):s13 -s22 Not Available [facility] (Lab) [address] [place], [address], 10/02/2023 21:05:23 Result Notes None recorded. Problems Name Problem SNOMED Code Status Onset Date Resolution Date Notes Provider Name and Address Organization Details Recorded Time Hypothyroid ism 03630942 Active 2022 Darinel Houser MD [address], [place], [address], [employer] 3 15:33:12 Gastroesoph ageal reflux disease without esophagitis 177433091 Active 2022 Darinel Houser MD [address], [place], [address], [employer] 15:33:42 Hyperlipide melita 75240647 Active 2022 Darinel Houser MD [address], [place], [address], [employer] 15:34:18 Hypertensiv e disorder 79572376 Active 2022 Darinel Houser MD [address], [place], [address], [employer] 15:35:28 Permanent cardiac pacemaker 5375114002757 02 Active 2022 Darinel Houser MD [address], [address], [employer] 3 15:56:03 Osteoarthri tis 543881406 Active 2022 Darinel Houser MD [address], [place], [address], [employer] 15:56:17 Impaired mobility 81351931 Active 2022 Darinel Houser MD [address], [place], [address], [employer] 3 15:56:27 Vertigo 646760336 Active 2023 Darinel Houser MD [address], [place], [address], [employer] 4 09:45:45 Vitamin D deficiency 84996749 Active 2023 Darinel Houser MD [address], [place], [address], [facility] [employer] [facility] 4 09:50:11 Obesity 107428503 Active 2023 Darinel Houser MD [address], [place], [address], [facility] [employer] [facility] 4 10:05:25 Vitamin B12 deficiency (non anemic) 07440214 Active 2023 Darinel Houser MD [address], [address], [place], [address], [facility] [employer] [facility] 4 14:36:38 Problem Notes None [...] Updated DateTime 3 149.86 cm 32.6 kg/m2 50330.1 7 g 97.3 [degF] 88 /min 20 /min 96 % 96 % 126 mm[Hg] 70 mm[Hg] Jc Patricia [place] [employer] [facility] [employer] 3 15:17:12 Date Recorded Body height Body mass index (BMI) Body weight Body temperature Heart rate Respiratory rate Oxygen saturation Oxygen saturation in Arterial blood by Pulse oximetry Systolic blood pressure Diastolic blood pressure Provider Name and Address Organization Details Last Updated DateTime 4 149.86 cm 32.9 kg/m2 96017.2 6 g 98.1 [degF] 84 /min 16 /min 99 % 99 % 136 mm[Hg] 78 mm[Hg] Jc Patricia [employer] [facility] [employer] [facility] 4 09:35:17 Date Recorded Body height Body mass index (BMI) Body weight Body temperature Heart rate Respiratory rate Oxygen saturation Oxygen saturation in Arterial blood by Pulse oximetry Systolic blood pressure Diastolic blood pressure Provider Name and Address Organization Details Last Updated DateTime 4 149.86 cm 33.6 kg/m2 04743.0 5 g 97.7 [degF] 80 /min 16 /min 97 % 97 % 136 mm[Hg] 80 mm[Hg] Jc [facility] [employer] 4 14:31:55 Social History Question Answer Notes LastModified by Organizat ion Details LastModified Time Tobacco Smoking Status Never Smoker Jc gut[employer] [facility] [employer] 01/09/2023 15:17:49 What Is Your Code Status? [...] Or The Highest Degree You Have Received? [id number] Information not available 01/09/2023 Have There Been [...] Anxious, Or Unable To Sleep At Night)? [id number] Information not available 01/09/2023 Have You Recently [...] Condition Response BLINDNESS N RHEUMATIC FEVER N BLADDER PROBLEMS N KIDNEY STONES N MRSA N OTHER # 1 N POLIO N LUNG DISEASE/DISORDER N HISTORY OF DRUG ABUSE N RADIATION / CHEMOTHERAPY N COPD N Other # 2 N BLOOD DISEASES N SURGERY N EAR OR HEARING PROBLEMS N MUMPS N SHINGLES N FEMALE PROBLEMS / INFECTIONS N DEPRESSION (INCLUDING POST ) N BOWEL PROBLEMS N FAILED BACK SYNDROME N STROKE/TIA N THYROID DISEASE N ULCERS N BENIGN PROSTATIC HYPERPLASIA N MEASLES N CERVICALGIA N TB SKIN TEST N HYPOTENSION N MYOCARDIAL INFARCTION N [place] N OBESITY [...] BLEEDING N BLOOD CLOTS N ASTHMA N CATARACTS N Abdominal Pain N ERECTILE DYSFUNCTION N ARTERIAL INSUFFICIENCY N GI PROBLEMS N CHF N Low Testosterone N NEUROPATHY N INFERTILITY N AIDS/HIV N FRACTURES N CHEMOTHERAPY / RADIATION N VISION/EYE PROBLEMS N LIVER DISEASE N HYPERTENSION N TOURETTE'S N ANXIETY DISORDER N BLOOD TRANSFUSION N ANEMIA/BLOOD DISORDER N CHRONIC EAR INFECTIONS N BRONCHITIS N TUBERCULOSIS N GLAUCOMA N FOOT PROBLEM N DIVERTICULITIS N SLEEP APNEA N CHICKENPOX N ALLERGIES/HAYFEVER N BACK INJECTIONS N INFECTIOUS DISEASE N PROSTATE N HEART ARRHYTHMIA N ESRD N INSOMNIA N HIGH CHOLESTEROL / HYPERLIPIDEMIA N EYE PROBLEMS N HYPERTHYROIDISM N PVD N EATING DISORDER N EDEMA N CHRONIC PAIN SYNDROME N CAROTID BLOCKAGE N CONSTIPATION N BACK / NECK PROBLEMS N HAVE YOU BEEN HOSPITALIZED OR SEEN IN [facility] IN THE PAST YEAR ? N ATHEROSCLEROSIS [...] DISORDER N ALZHEIMER'S DISEASE N PAIN N DEMENTIA N HERPES N SEIZURES/EPILEPSY N HEADACHES/MIGRAINES N VASCULAR DISEASE N PACEMAKER N DIZZINESS N KIDNEY DISEASE N HEART DISEASE/HEART PROBLEMS N SCARLET FEVER N MULTIPLE SCLEROSIS N MENTAL DISORDER/ILLNESS N DEVELOPMENTAL OR BEHAVIORAL DISORDERS N NEUROPSYCHOLOGICAL N CANCER: SPECIFY N CARDIAC ARRHYTHMIA N PNEUMONIA N ATRIAL FIBRILLATION N Gall Stones N PULMONARY EMBOLISM N AUTOIMMUNE DISEASE N Past Encounters Encounter ID Performer Location Encounter Start Date Encounter Closed Date Diagnosis/Indication Diagnosis SNOMED-CT Code Diagnosis ICD10 Code Diagnosis Note [id number] Darinel Houser MD [address] [address] 01/09/2023 14:51:33 01/09/2023 16:04:20 Hypothyroidism 32610861 E03.9 Gastroesop hageal reflux disease without esophagitis 589946494 K21.9 Hyperlipidemia 16313287 E78.5 Permanent cardiac pacemaker 3694294976 74869 Z95.0 History Hypertensive disorder 38 827210 I10 Osteoarthritis 540675854 M19.90 Impaired mobility 889663 05 Z74.09 [id number] Darinel Houser MD [address] [address] 09/05/2023 09:18:35 09/05/2023 10:09:02 Hypertensive disorder 25970501 I10 Permanent cardiac pacemaker 4843193062 21699 Z95.0 History Hyperlipidemia 37260049 E78.5 Hypothyroidism 53350668 E03.9 Gastroesop hageal reflux disease without esophagitis 725474150 K21.9 Osteoarthritis 513425909 M19.90 Impaired mobility 925625 05 Z74.09 Vertigo 744272458 R42 Vitamin D deficiency 347 59908 E55.9 Obesity 444597632 E66.9 [id number] Darinel Houser MD [address] [address] 10/02/2023 09:37:30 10/02/2023 10:25:56 [id number] Darinel Houser MD [address] [place] [address] 10/21/2023 14:20:44 10/21/2023 14:45:50 Hypertensive disorder 67901221 I10 Permanent cardiac pacemaker 4980845201 07118 Z95.0 History Hyperlipidemia 92947829 E78.5 Hypothyroidism 94282516 E03.9 Gastroesop hageal reflux disease without esophagitis 902285848 K21.9 Osteoarthritis 518860614 M19.90 Impaired mobility 514729 05 Z74.09 Vitamin D deficiency 347 23176 E55.9 Obesity 741497830 E66.9 Vitamin B1 2 deficiency (non anemic) 98071122 E53.8 Health Concerns Section Related Observation LastModified by Organization Detai ls LastModified Time None Recorded Concern Status LastModified by Organization Details LastModified Time None Recorded Advance Directives Directive None Recorded Payers Encounter Date Sequence Insurance Name Policy Number Policy Abel Covered Member ID Abel Member ID Guarantor Name 01/09/2023 2 [place] Zaverben C Houser [id number] Zaverben Houser 01/09/[address] [facility] (MEDICARE REPLACEMENT/ ADVANTAGE - HMO) [id number] Zaverben C Houser [id number] Zaverben Houser 09/05/2023 2 [place] Zaverben C Houser [id number] Zaverben Houser 09/05/[address] [facility] (MEDICARE REPLACEMENT/ ADVANTAGE - HMO) [id number] Zaverben C Houser [id number] Zaverben Houser 10/02/2023 2 [place] Zaverben C Houser [id number] Zaverben Houser 10/02/[address] [facility] (MEDICARE REPLACEMENT/ ADVANTAGE - HMO) [id number] Zaverben C Houser [id number] Zaverben Houser 10/21/2023 2 [place] Zaverben C Houser [id number] Luzma Houser 10/21/[address] [facility] (MEDICARE REPLACEMENT/ ADVANTAGE - HMO) [id number] Luzma Houser [id number] Luzma Houser Notes Date Note Type Note Provider Name and Address Organization Details Recorded Time 01/09/2023 text/html New pt visit:77 yo F is here with her grand daughter to establish her care. Pt was seeing PCP at [facility] in the past.Doing overall well. Needs refill on her meds. Pt has h/o cardiac pacemaker placed and she is f/u with Cardio at [facility] [place] for it.PMH, FH and SH reviewed. Darinel Houser MD [address], [place], [address], [employer] 01/09/2023 15:58:13 09/05/2023 text/html Pt is here with family for f/u on her meds and chronic conditions. Doing overall well. Needs refill on her meds. Last visit in 01/28. Pt has h/o cardiac pacemaker placed and she is f/u with Cardio at [facility] for it. Darinel Houser MD [address] [place], [place], [address], [employer] 09/05/2023 10:08:46 10/21/2023 text/html Pt is here with son for f/u on her annual labs. Doing overall well. Denies any problem with meds. Denies any new concern. Denies any more dizziness and she is back to her normal. Pt has h/o cardiac pacemaker placed and she is f/u with Cardio at [facility] for it. Darinel Houser MD [address], [place], [place], [address], [employer] 10/21/2023 14:45:11
--- OUTSIDE RECORDS SUMMARY | 2024-08-04 12:51 | XMS_ITS | Clinical Summary ---
Author Organization [facility] Address [place] [address] Care Team Providers Care Medical Technician Name Role Phone Preeti So MD Primary Care Provider [phone] Medications apixaban (ELIQUIS) 5 MG tablet Take [...] patient's age to complete this topic Insurance [facility] Care Teams Medical Technician Relationship Specialty Start Date End Date Preeti So MD [address] [place] [phone] PCP - General FAMILY PRACTICE 12/04/21
--- OUTSIDE RECORDS SUMMARY | 2024-08-04 12:51 | XMS_ITS | Clinical Summary ---
Author Organization [facility] Address [address] [place] [address] Phone Care Team Providers Care Hammerer Helper Name Role Phone Provider, Not On File [...] to complete this topic Insurance MEDICARE C [facility] on file Advance Directives * Full Code (Latest Code Status on File) Date Activated Date Inactivated Comments 11/27/2021 4:48 PM * Full Code Date Activated Date Inactivated Comments 11/17/2021 2:51 AM 11/20/2021 2:07 PM CPR-Full [place] atment: FULL ARREST: Attempt Resuscitation/CPR wit intubation and mechanical ventilation. PRE-ARREST: Use entire range of life support measures to stabilize the patient. Care Teams Hammerer Helper Relationship Specialty Start Date End Date Provider, Not On File [place] PCP - General 11/17/21
[2024-08-06 03:19] LABS: SM Antibody <1.0 NEG AI (<1.0 NEG); SM/RNP Antibody <1.0 NEG AI (<1.0 NEG)
[2024-08-06 07:05] LABS: SS-A <1.0 NEG AI (<1.0 NEG); SS-B <1.0 NEG AI (<1.0 NEG)
[2024-08-06 12:52] LABS: Anti Glomerular Basement Memb <1.0 AI
[2024-08-07 12:34] LABS: Anti Nuclear Antibody Pattern Nuclear, Homogeneous; Anti Nuclear Antibody Titer 1:40 titer
== END 2024-08-04 11:24 | disposition home or self-care (01) ==
LOC: ANHLAB 11:24
PROVIDERS: PCP Family Medicine; Visit Provider Internal Medicine Nephrology
DX: R76.0 Raised antibody titer (principal)
CPT/HCPCS: 36415; 82595; 83520; 85652; 86036; 86038; 86225; 86235; 86430

== ENCOUNTER 2024-08-06 10:09 | Outpatient (CLI) | payer MEDICARE, MEDICAID, SELFPAY ==
--- NOTE | ~2024-08-06 | US_ITS ---
Renal-Bladder ultrasound Clinical History: Chronic kidney disease Technique: Real-time sonographic imaging of the kidneys and urinary bladder was performed. Findings: The right kidney measures 7.7 cm in length and the left kidney measures 8.6 cm. There is no hydronephrosis or renal calculus identified. Renal cortical echogenicity is within normal limits. No renal mass lesion is identified. The urinary bladder is moderately distended at the time of this exam. No intraluminal echoes are iden tified. No abnormal wall thickening is seen. Impression: Unremarkable ultrasound of the kidneys and urinary bladder. Reviewed, dictated and finalized at location M. Impression: Unremarkable ultrasound of the kidneys and urinary bladder.
--- OUTSIDE RECORDS SUMMARY | 2024-08-06 10:54 | XMS_ITS | Clinical Summary ---
Author Organization [facility] Address [address] [place] [address] Phone Care Team Providers Care Flake Miller Helper Name Role Phone Provider, Not On [...] to complete this topic Insurance MEDICARE C [facility] on file Advance Directives * Full Code (Latest Code Status on File) Date Activated Date Inactivated Comments 11/27/2021 4:48 PM * Full Code Date Activated Date Inactivated Comments 11/17/2021 2:51 AM 11/20/2021 2:07 PM CPR-Full [place] atment: FULL ARREST: Attempt Resuscitation/CPR wit intubation and mechanical ventilation. PRE-ARREST: Use entire range of life support measures to stabilize the patient. Care Teams Flake Miller Helper Relationship Specialty Start Date End Date Provider, Not On File [place] PCP - General 11/17/21
--- OUTSIDE RECORDS SUMMARY | 2024-08-06 10:54 | XMS_ITS | Clinical Summary ---
Author Organization [facility] [place] Address [facility] [place] [address] Care Team Providers Care Leather Heel Breaster Name Role Phone Preeti So MD Primary Care Provider [phone] Medications apixaban (ELIQUIS) 5 MG tablet Take [...] patient's age to complete this topic Insurance [facility] Care Teams Leather Heel Breaster Relationship Specialty Start Date End Date Preeti So MD [address] [place] [phone] PCP - General FAMILY PRACTICE 12/04/21
--- OUTSIDE RECORDS SUMMARY | 2024-08-06 10:54 | XMS_ITS | Data Portability ---
Author Organization [facility] [email or web address], Main Office Address [address] [place] [address] Care Team Providers Care Director Music Name Role Phone DARINEL HOUSER Primary Care [...] time. Pt is planning to go to [facility] next month. All meds verified with them. Meds as directed. Diet and exercise explained in detail. BP diary education given and call us if any concerns. Fall risk precautions explained. Cont f/u with Cardio at [place] as per schedule. HM: WWE - Pt declined. Mammo - Pt declined. Colonoscopy - Pt declined. DEXA - Pt declined. Flu - 12/29. Tdap, Pneumo, Shingrix - At pharmacy/HD. F/u in 3-4 months. Annual labs in 01/29. [email or web address] Not available 01/09/2023 15:57:40 09/05/2023 09/05/2023 77 [...] precautions explained. Cont f/u with Cardio at [place] as per schedule. HM: WWE - Pt declined. Mammo - Pt declined. Colonoscopy - Pt declined. DEXA - Pt declined. Flu - 12/29. Tdap, Pneumo, Shingrix - At pharmacy/HD. F/u in 3-4 weeks. Annual labs in 09/30. [email or web address] Not available 09/05/2023 10:08:33 10/21/2023 10/21/2023 77 [...] precautions explained. Cont f/u with Cardio at [place] as per schedule. HM: WWE - Pt declined. Mammo - Pt declined. Colonoscopy - Pt declined. DEXA - Pt declined. Flu - 12/29. Tdap, Pneumo, Shingrix - At pharmacy/HD. F/u in 3-6 months. Annual labs in 09/30. [email or web address] Not available 10/21/2023 14:44:57 Plan of Treatment Reminders Order Date Submit Date Provider Last Modified By Organization Details Last Modified Time Details Appointments None recorded. Lab vitamin B12 + folate, serum or blood [address] (Lab), [address] [place], [address], 4 08:04:29 HbA1c (hemoglobin A1c), blood [address] (Lab), [address] [place], [address], 4 08:04:29 uric acid, serum or plasma [address] (Lab), [address] [place], [address], 4 08:04:29 CBC w/ auto diff [address] (Lab), [address] [place], [address], 4 08:04:28 CMP, serum or plasma [address] (Lab), [address] [place], [address], 4 08:04:28 urinalysis complete, reflex culture [address] (Lab), [address] [place], [address], 4 08:04:28 lipid panel, serum [address] (Lab), [address] [place], [address], 4 08:04:28 vitamin D, 25-hydroxy, total, serum [address] (Lab), [address] [place], [address], 4 08:04:29 TSH, serum or plasma [address] (Lab), [address] [place], [address], 4 08:04:28 Referral None recorded. Procedures None recorded. Surgeries None recorded. Imaging None recorded. Medication Orders cyanocobala min (vit B-12) 1,000 mcg/mL injection solution 2023 [email or web address] Not available 15:35:53 olmesartan 40 mg-hydrochl orothiazide 12.5 mg tablet 2023 [facility] [address], [address], [place], [address], 4 14:39:39 metoprolol succinate ER 25 mg tablet,exte nded release 24 hr 2023 [facility] [address], [address], [place], [place], [address], 4 14:39:40 ergocalcife rol (vitamin D2) 1,250 mcg (50,000 unit) capsule 2023 024 [facility] 4878, [address], [place], [address], 4 14:39:38 omeprazole 20 mg capsule,del ayed release 2023 024 [facility] [address]878, [address], [place], [place], [address], 4 14:39:41 atorvastati n 20 mg tablet 2023 024 [facility] [address]878, [address], Ry [place], [place], [address], 4 14:39:39 levothyroxi ne 75 mcg tablet 2023 024 [facility] [address]878, [address], Ry [place], [place], [address], 4 14:39:39 olmesartan 40 mg-hydrochl orothiazide 12.5 mg tablet 2023 024 [facility] [address]878, [address], [place], [address], 4 09:48:48 metoprolol succinate ER 25 mg tablet,exte nded release 24 hr 2023 [facility] [address]878, [address], Ry [place], [place], [address], 4 09:48:47 atorvastati n 20 mg tablet 2023 024 [facility] [address], [address]ios, [place], [address], 4 09:48:44 meclizine 25 mg tablet 2023 024 [facility] [address], [address] Rios, [place], [address], 4 09:48:46 omeprazole 20 mg capsule,del ayed release 2023 024 [facility] [address]878, [address], Ry [place], [place], [address], 4 09:48:45 levothyroxi ne 75 mcg tablet [email or web address] [facility], [address] Rios, [place], [address], 4 09:49:04 olmesartan 40 mg-hydrochl orothiazide 12.5 mg tablet 2022 023 [facility] [address], [address]ios, [place], [address], 3 15:36:53 metoprolol succinate ER 25 mg tablet,exte nded release 24 hr 2022 023 [facility] [address]878, [address], Ry [place], [place], [address], 3 15:36:56 omeprazole 20 mg capsule,del ayed release 2022 023 [facility] [address], [address]ios, [place], [address], 15:36:53 atorvastati n 20 mg tablet 2022 023 [facility] [address]878, [address], [place], [address], 15:36:57 levothyroxi ne 75 mcg tablet 2022 023 [facility] [address], [address], [place], [address], 15:36:55 Patient TargetsNo targets recorded. Patient InstructionsNo instructions recorded. Reason for Referral None Reported. Results Created Date Observation Date Name Description Value Unit Range Abnormal Flag Note LastModifiedBy Organization Detail LastModifiedTime 10/02/1910/02/2023 COMPR EHENS ROHITH METAB OLIC PANEL sodium 138 mmol/ L 137-14 5 Not Available [facility] (Lab) [address] [place], [address], 10/02/2023 13:46:24 10/02/19 24 10/02/2023 COMPR EHENS ROHITH METAB OLIC PANEL potassium 4.6 mmol/ L 3.5-5. 1 Not Available [facility] (Lab) [address] [place], [address], 10/02/2023 13:46:24 10/02/19 24 10/02/2023 COMPR EHENS ROHITH METAB OLIC PANEL chloride 106 mmol/ L 98-107 Not Available [facility] (Lab) [address] [place], [address], 10/02/2023 13:46:24 10/02/19 24 10/02/2023 COMPR EHENS ROHITH METAB OLIC PANEL carbon dioxide 25 mmol/ L 22-30 Not Available [facility] (Lab) [address] [place], [address], 10/02/2023 13:46:24 10/02/19 24 10/02/2023 COMPR EHENS ROHITH METAB OLIC PANEL anion gap 11.6 mmol/ L 14-22 low Not Available [facility] (Lab) [address] [place], [address], 10/02/2023 13:46:24 10/02/19 24 10/02/2023 COMPR EHENS ROHITH METAB OLIC PANEL glucose 92 mg/dL 70-99 Not Available [facility] (Lab) [address] [place], [address], 10/02/2023 13:46:24 10/02/19 24 10/02/2023 COMPR EHENS ROHITH METAB OLIC PANEL BUN 18 mg/dL 8-19 Not Available [facility] (Lab) [address] [place], [address], 10/02/2023 13:46:24 10/02/19 24 10/02/2023 COMPR EHENS ROHITH METAB OLIC PANEL creatinine 1.24 mg/dL 0.66-1 .25 Not Available [facility] (Lab) [address] [place], [address], 10/02/2023 13:46:24 10/02/19 24 10/02/2023 COMPR EHENS ROHITH METAB OLIC PANEL GFR 57 Refer ence Range : Pool ge GFR Healt hy Adult : >60 [...] calcu lator is avail able on the [facility] websi te: [email or web address] [email or web address] r_cal culat or Not Available [facility] (Lab) [address] [place], [address], 10/02/2023 13:46:24 10/02/19 24 10/02/2023 COMPR EHENS ROHITH METAB OLIC PANEL alkaline phosphatase 91 U/L 38-126 Not Available [facility] (Lab) [address] [place], [address], 10/02/2023 13:46:24 10/02/19 24 10/02/2023 COMPR EHENS ROHITH METAB OLIC PANEL alanine aminotransfe rase 21 U/L 0-50 Not Available [facility] (Lab) [address] [place], [address], 10/02/2023 13:46:24 10/02/19 24 10/02/2023 COMPR EHENS ROHITH METAB OLIC PANEL aspartate aminotransfe rase 36 U/L 15-46 Not Available [facility] (Lab) [address] [place], [address], 10/02/2023 13:46:24 10/02/19 24 10/02/2023 COMPR EHENS ROHITH METAB OLIC PANEL bilirubin, total 0.60 mg/dL 0.20-1 .30 Not Available [facility] (Lab) [address] [place], [address], 10/02/2023 13:46:24 10/02/19 24 10/02/2023 COMPR EHENS ROHITH METAB OLIC PANEL calcium 9.1 mg/dL 8.4-10 .2 Not Available [facility] (Lab) [address] [place], [address], 10/02/2023 13:46:24 10/02/19 24 10/02/2023 COMPR EHENS ROHITH METAB OLIC PANEL total protein 7.3 g/dL 6.3-8. 2 Not Available [facility] (Lab) [address] [place], [address], 10/02/2023 13:46:24 10/02/19 24 10/02/2023 COMPR EHENS ROHITH METAB OLIC PANEL albumin 4.2 g/dL 3.0-4. 4 Not Available [facility] (Lab) [address] [place], [address], 10/02/2023 13:46:24 10/02/19 24 10/02/2023 COMPR EHENS ROHITH METAB OLIC PANEL globulin 3.1 g/dL 2.6-4. 2 Not Available [facility] (Lab) [address] [place], [address], 10/02/2023 13:46:24 10/02/19 24 10/02/2023 COMPR EHENS ROHITH METAB OLIC PANEL A/G ratio 1.4 ratio 1.0-2. 0 Not Available [facility] (Lab) [address] [place], [address], 10/02/2023 13:46:24 10/02/19 24 10/02/2023 URIC ACID SERUM uric acid 7.2 mg/dL 3.5-8. 5 Not Available [facility] (Lab) [address] [place], [address], 10/02/2023 13:46:26 10/02/19 24 10/02/2023 LIPID PANEL cholesterol 151 mg/dL 140-19 9 NIH MIKE NSUS RECOM MENDA TION FOR ETTA STERO L: ADULT CHILD LOW RISK: <200 <170 BORDE RLINE : <200- 239 ----- HIGH RISK: >240 >200 Not Available [facility] (Lab) [address] [place], [address], 10/02/2023 13:46:31 10/02/19 24 10/02/2023 LIPID PANEL triglyceride s 149 mg/dL 0-150 NIH MIKE NSUS REPOR T RECOM MENDA TION FOR TRIGL YCERI AR: ADULT CHILD LOW RISK: <150 ----- BODER LINE: 150-1 99 ----- HIGH RISK: >200 ----- Not Available [facility] (Lab) [address] [place], [address], 10/02/2023 13:46:31 10/02/19 24 10/02/2023 LIPID PANEL HDL cholesterol 50 mg/dL 40- Not Available [facility] (Lab) [address] [place], [address], 10/02/2023 13:46:31 10/02/19 24 10/02/2023 LIPID PANEL [...] WILL NOT BE REPOR TWYLA. Not Available [facility] (Lab) [address] [place], [address], 10/02/2023 13:46:31 10/02/19 24 10/02/2023 CBC/C OMPLE TE BLD COUNT W/DIF F white blood cells 7.3 x10'3 /uL 4.2-10 .8 Not Available [facility] (Lab) [address] [place], [address], 10/02/2023 13:53:51 10/02/19 24 10/02/2023 CBC/C OMPLE TE BLD COUNT W/DIF F red blood cells 4.44 x10'6 /uL 4.10-5 .80 Not Available [facility] (Lab) [address] [place], [address], 10/02/2023 13:53:51 10/02/19 24 10/02/2023 CBC/C OMPLE TE BLD COUNT W/DIF F hemoglobin 11.4 g/dL 13.2-1 7.0 low Not Available [facility] (Lab) [address] [place], [address], 10/02/2023 13:53:51 10/02/19 24 10/02/2023 CBC/C OMPLE TE BLD COUNT W/DIF F hematocrit 35.4 % 39.3-5 0.0 low Not Available [facility] (Lab) [address] [place], [address], 10/02/2023 13:53:51 10/02/19 24 10/02/2023 CBC/C OMPLE TE BLD COUNT W/DIF F mean red cell volume 79.7 fL 80.0-9 7.0 low Not Available [facility] (Lab) [address] [place], [address], 10/02/2023 13:53:51 10/02/19 24 10/02/2023 CBC/C OMPLE TE BLD COUNT W/DIF F mean red cell hemoglobin 25.7 pg 27.0-3 3.0 low Not Available [facility] (Lab) [address] [place], [address], 10/02/2023 13:53:51 10/02/19 24 10/02/2023 CBC/C OMPLE TE BLD COUNT W/DIF F mean RBC HGB concentratio n 32.2 g/dL 31.0-3 6.0 Not Available [facility] (Lab) [address] [place], [address], 10/02/2023 13:53:51 10/02/19 24 10/02/2023 CBC/C OMPLE TE BLD COUNT W/DIF F red cell distribution width 17.1 % 11.8-1 5.5 high Not Available [facility] (Lab) [address] [facility] [place], [address], 10/02/2023 13:53:51 10/02/19 24 10/02/2023 CBC/C OMPLE TE BLD COUNT W/DIF F platelets 220 x10'3 /uL 150-40 0 Not Available [facility] (Lab) [address] [place], [address], 10/02/2023 13:53:51 10/02/19 24 10/02/2023 CBC/C OMPLE TE BLD COUNT W/DIF F mean platelet volume 11.5 fL 9.0-12 .4 Not Available [facility] (Lab) [address] [place], [address], 10/02/2023 13:53:51 10/02/19 24 10/02/2023 CBC/C OMPLE TE BLD COUNT W/DIF F neutrophils 62.9 % 39.0-7 2.0 Not Available [facility] (Lab) [address] [place], [address], 10/02/2023 13:53:51 10/02/19 24 10/02/2023 CBC/C OMPLE TE BLD COUNT W/DIF F lymphocytes 27.6 % 16.0-4 7.0 Not Available [facility] (Lab) [address] [place], [address], 10/02/2023 13:53:51 10/02/19 24 10/02/2023 CBC/C OMPLE TE BLD COUNT W/DIF F monocytes 6.3 % 5.0-12 .0 Not Available [facility] (Lab) [address] [place], [address], 10/02/2023 13:53:51 10/02/19 24 10/02/2023 CBC/C OMPLE TE BLD COUNT W/DIF F eosinophils 2.6 % 1.0-7. 0 Not Available [facility] (Lab) [address] [place], [address], 10/02/2023 13:53:51 10/02/19 24 10/02/2023 CBC/C OMPLE TE BLD COUNT W/DIF F basophils 0.3 % 0.0-2. 0 Not Available [facility] (Lab) [address] [place], [address], 10/02/2023 13:53:51 10/02/19 24 10/02/2023 CBC/C OMPLE TE BLD COUNT W/DIF F immature granulocytes 0.3 % 0.00-0 .50 Not Available [facility] (Lab) [address] [place], [address], 10/02/2023 13:53:51 10/02/19 24 10/02/2023 CBC/C OMPLE TE BLD COUNT W/DIF F neutrophils, absolute count 4.61 x10'3 /uL 1.5-8. 0 Not Available [facility] (Lab) [address] [place], [address], 10/02/2023 13:53:51 10/02/19 24 10/02/2023 CBC/C OMPLE TE BLD COUNT W/DIF F lymphocytes, absolute count 2.02 x10'3 /uL 1.07-3 .43 Not Available [facility] (Lab) [address] [place], [address], 10/02/2023 13:53:51 10/02/19 24 10/02/2023 CBC/C OMPLE TE BLD COUNT W/DIF F monocytes, absolute count 0.46 x10'3 /uL 0.29-0 .99 Not Available [facility] (Lab) [address] [place], [address], 10/02/2023 13:53:51 10/02/19 24 10/02/2023 CBC/C OMPLE TE BLD COUNT W/DIF F eosinophils, absolute count 0.19 x10'3 /uL 0.02-0 .53 Not Available [facility] (Lab) [address] [place], [address], 10/02/2023 13:53:51 10/02/19 24 10/02/2023 CBC/C OMPLE TE BLD COUNT W/DIF F basophils, absolute count 0.02 x10'3 /uL 0.01-0 .08 Not Available [facility] (Lab) [address] [place], [address], 10/02/2023 13:53:51 10/02/19 24 10/02/2023 CBC/C OMPLE TE BLD COUNT W/DIF F immature granulocytes ,absolute 0.02 x10'3 /uL 0.00-0 .05 Not Available [facility] (Lab) [address] [place], [address], 10/02/2023 13:53:51 10/02/19 24 10/02/2023 CBC/C OMPLE TE BLD COUNT W/DIF F nucleated red blood cells 0.0 % -0 Not Available [facility] (Lab) [address] [place], [address], 10/02/2023 13:53:51 10/02/19 24 10/02/2023 CBC/C OMPLE TE BLD COUNT W/DIF F NRBC# 0.00 x10'3 /uL Not Available [facility] (Lab) [address] [place], [address], 10/02/2023 13:53:51 10/02/19 24 10/02/2023 URINA LYSIS COMPL ETE/I RIS W/RFX color LIGHT- YELLOW Not Available [facility] (Lab) [address] [place], [address], 10/02/2023 14:39:59 10/02/19 24 10/02/2023 URINA LYSIS COMPL ETE/I RIS W/RFX appear CLEAR Not Available [facility] (Lab) [address] [place], [address], 10/02/2023 14:39:59 10/02/19 24 10/02/2023 URINA LYSIS COMPL ETE/I RIS W/RFX specific gravity 1.015 1.001- 1.030 Not Available [facility] (Lab) [address] [place], [address], 10/02/2023 14:39:59 10/02/19 24 10/02/2023 URINA LYSIS COMPL ETE/I RIS W/RFX pH 5.0 pH_un its 5.0-9. 0 Not Available [facility] (Lab) [address] [place], [address], 10/02/2023 14:39:59 10/02/19 24 10/02/2023 URINA LYSIS COMPL ETE/I RIS W/RFX leukocytes NEGATI VE jossie/u L negati ve- Not Available [facility] (Lab) [address] [place], [address], 10/02/2023 14:39:59 10/02/19 24 10/02/2023 URINA LYSIS COMPL ETE/I RIS W/RFX nitrite NEGATI VE negati ve- Not Available [facility] (Lab) [address] [place], [address], 10/02/2023 14:39:59 10/02/19 24 10/02/2023 URINA LYSIS COMPL ETE/I RIS W/RFX protein NEGATI VE mg/dL negati ve- Not Available [facility] (Lab) [address] [place], [address], 10/02/2023 14:39:59 10/02/19 24 10/02/2023 URINA LYSIS COMPL ETE/I RIS W/RFX glucose NORMAL mg/dL normal - Not Available [facility] (Lab) [address] [place], [address], 10/02/2023 14:39:59 10/02/19 24 10/02/2023 URINA LYSIS COMPL ETE/I RIS W/RFX ketones NEGATI VE mg/dL negati ve- Not Available [facility] (Lab) [address] [place], [address], 10/02/2023 14:39:59 10/02/19 24 10/02/2023 URINA LYSIS COMPL ETE/I RIS W/RFX urobilinogen NORMAL mg/dL normal - Not Available [facility] (Lab) [address] [place], [address], 10/02/2023 14:39:59 10/02/19 24 10/02/2023 URINA LYSIS COMPL ETE/I RIS W/RFX bilirubin NEGATI VE mg/dL negati ve- Not Available [facility] (Lab) [address] [place], [address], 10/02/2023 14:39:59 10/02/19 24 10/02/2023 URINA LYSIS COMPL ETE/I RIS W/RFX blood 0.06 mg/dL negati ve- abnormal Not Available [facility] (Lab) [address] [place], [address], 10/02/2023 14:39:59 10/02/19 24 10/02/2023 URINA LYSIS COMPL ETE/I RIS W/RFX white blood cells 0-8 /i??h pfi?? 0-8 Not Available [facility] (Lab) [address] [place], [address], 10/02/2023 14:39:59 10/02/19 24 10/02/2023 URINA LYSIS COMPL ETE/I RIS W/RFX red blood cells 0-4 /i??h pfi?? 0-4 Not Available [facility] (Lab) [address] [place], [address], 10/02/2023 14:39:59 10/02/19 24 10/02/2023 URINA LYSIS COMPL ETE/I RIS W/RFX bacteria NONE Not Available [facility] (Lab) [address] [place], [address], 10/02/2023 14:39:59 10/02/19 24 10/02/2023 URINA LYSIS COMPL ETE/I RIS W/RFX mucous OCCASI ONAL /i??l pfi?? abnormal Not Available [facility] (Lab) [address] [place], [address], 10/02/2023 14:39:59 10/02/19 24 10/02/2023 URINA LYSIS COMPL ETE/I RIS W/RFX squamous epithelial FEW /i??l pfi?? abnormal Not Available [facility] (Lab) [address] [place], [address], 10/02/2023 14:39:59 10/02/19 24 10/02/2023 URINA LYSIS COMPL ETE/I RIS W/RFX hyaline cast OCCASI ONAL /i??l pfi?? none seen- abnormal Not Available [facility] (Lab) [address] [place], [address], 10/02/2023 14:39:59 10/02/19 24 10/02/2023 TSH W/REF DINO FT4 TSH with reflex free T4 3.160 uIU/m L 0.465- 4.680 Not Available [facility] (Lab) [address] [place], [address], 10/02/2023 15:08:22 10/02/19 24 10/04/2023 VITAM IN D 25-HY DROXY [id number] 19.5 NG/mL 30-100 low Vitam in D Statu s: Defic ient: <20 ng/mL Insuf ficie nt: 20-29 ng/mL Suffi cient : 30-10 0 ng/mL Not Available [facility] (Lab) [address] [place], [address], 10/04/2023 17:32:57 10/02/19 24 10/02/2023 VITAM IN B12 (TONY NICKOLAS ) vb12 166 pg/mL 239-93 1 low Not Available [facility] (Lab) [address] [place], [address], 10/02/2023 19:42:52 10/02/19 24 10/02/2023 FOLAT E, SERUM /PLAS MA folate 5.10 NG/mL 2.76-2 0.0 Not Available [facility] (Lab) [address] [place], [address], 10/02/2023 19:42:53 10/02/19 24 10/02/2023 HEMOG LOBIN A1C HA1C 6.1 % 4.0-6. 0 high Diabe kiki Scree arabella Crite reuben: <5.7% Consi stent with absen ce of diabe kiki 5.7-6 .4% Consi stent with incre ased risk for diabe kiki (pred iabet es) >OR=6 .5% Consi stent with diabe kiki REFER ENCE: Diabe kiki Care 2016, 39([place] ppl.1 ):s13 -s22 Not Available [facility] (Lab) [address] [place], [address], 10/02/2023 21:05:23 Result Notes None recorded. Problems Name Problem SNOMED Code Status Onset Date Resolution Date Notes Provider Name and Address Organization Details Recorded Time Hypothyroid ism 35275183 Active 2022 Darinel Houser MD [address], [place], [address], [facility] 3 15:33:12 Gastroesoph ageal reflux disease without esophagitis 859380851 Active 2022 Darinel Houser MD [address], [place], [address], [facility] 15:33:42 Hyperlipide melita 34146332 Active 2022 Darinel Houser MD [address], [place], [address], [facility] 15:34:18 Hypertensiv e disorder 02855687 Active 2022 Darinel Houser MD [address], [place], [address], [facility] 15:35:28 Permanent cardiac pacemaker 8335971090869 02 Active 2022 Darinel Houser MD [address], [address], [facility] 3 15:56:03 Osteoarthri tis 578875568 Active 2022 Darinel Houser MD [address], [place], [address], [facility] 15:56:17 Impaired mobility 97124595 Active 2022 Darinel Houser MD [address], [place], [address], [facility] 3 15:56:27 Vertigo 441275798 Active 2023 Darinel Houser MD [address], [place], [address], [facility] 4 09:45:45 Vitamin D deficiency 66224244 Active 2023 Darinel Houser MD [address], [place], [address], [facility] [employer] [facility] 4 09:50:11 Obesity 041174978 Active 2023 Darinel Houser MD [address], [place], [address], [facility] [employer] [facility] 4 10:05:25 Vitamin B12 deficiency (non anemic) 36732366 Active 2023 Darinel Houser MD [address], [address], [place], [address], [facility] [employer] [facility] 4 14:36:38 Problem Notes None recorded. Medical [...] Updated DateTime 3 149.86 cm 32.6 kg/m2 83253.1 7 g 97.3 [degF] 88 /min 20 /min 96 % 96 % 126 mm[Hg] 70 mm[Hg] Jc Patricia [place] [employer] [facility] [email or web address] 3 15:17:12 Date Recorded Body height Body mass index (BMI) Body weight Body temperature Heart rate Respiratory rate Oxygen saturation Oxygen saturation in Arterial blood by Pulse oximetry Systolic blood pressure Diastolic blood pressure Provider Name and Address Organization Details Last Updated DateTime 4 149.86 cm 32.9 kg/m2 69897.2 6 g 98.1 [degF] 84 /min 16 /min 99 % 99 % 136 mm[Hg] 78 mm[Hg] Jc Patricia [employer] [facility] [employer] [facility] 4 09:35:17 Date Recorded Body height Body mass index (BMI) Body weight Body temperature Heart rate Respiratory rate Oxygen saturation Oxygen saturation in Arterial blood by Pulse oximetry Systolic blood pressure Diastolic blood pressure Provider Name and Address Organization Details Last Updated DateTime 4 149.86 cm 33.6 kg/m2 90858.0 5 g 97.7 [degF] 80 /min 16 /min 97 % 97 % 136 mm[Hg] 80 mm[Hg] Jc [facility] [email or web address] 4 14:31:55 Social History Question Answer Notes LastModified by Organizat ion Details LastModified Time Tobacco Smoking Status Never Smoker Jc gutierres [facility] [email or web address] 01/09/2023 15:17:49 What Is Your Code Status? [...] Or The Highest Degree You Have Received? [id number] Information not available 01/09/2023 Have There Been [...] Anxious, Or Unable To Sleep At Night)? [id number] Information not available 01/09/2023 Have You Recently [...] HAVE YOU BEEN HOSPITALIZED OR SEEN IN [facility] IN THE PAST YEAR ? N [...] SNOMED-CT Code Diagnosis ICD10 Code Diagnosis Note [id number] Darinel Houser MD [address] [address] 01/09/2023 14:51:33 01/09/2023 16:04:20 Hypothyroidism 73838301 E03.9 Gastroesop hageal reflux disease without esophagitis 442122210 K21.9 Hyperlipidemia 73232087 E78.5 Permanent cardiac pacemaker 3102208810 65292 Z95.0 History Hypertensive disorder 38 704401 I10 Osteoarthritis 778310950 M19.90 Impaired mobility 248037 05 Z74.09 [id number] Darinel Houser MD [address] [address] 09/05/2023 09:18:35 09/05/2023 10:09:02 Hypertensive disorder 92955309 I10 Permanent cardiac pacemaker [id number] 56141 Z95.0 History Hyperlipidemia 56863023 E78.5 Hypothyroidism 17577803 E03.9 Gastroesop hageal reflux disease without esophagitis 815213789 K21.9 Osteoarthritis 712678004 M19.90 Impaired mobility 152897 05 Z74.09 Vertigo 236620939 R42 Vitamin D deficiency 347 84579 E55.9 Obesity 245851605 E66.9 [id number] Darinel Houser MD [address] [address] 10/02/2023 09:37:30 10/02/2023 10:25:56 [id number] Darinel Houser MD [address] [place] [address] 10/21/2023 14:20:44 10/21/2023 14:45:50 Hypertensive disorder 12804768 I10 Permanent cardiac pacemaker 2732239615 83700 Z95.0 History Hyperlipidemia 31214001 E78.5 Hypothyroidism 87831681 E03.9 Gastroesop hageal reflux disease without esophagitis 129562264 K21.9 Osteoarthritis 144584076 M19.90 Impaired mobility 226801 05 Z74.09 Vitamin D deficiency 347 80388 E55.9 Obesity 093216024 E66.9 Vitamin B1 2 deficiency (non anemic) 52175654 E53.8 Health Concerns Section Related Observation LastModified by Organization Detai ls LastModified Time None Recorded Concern Status LastModified by Organization Details LastModified Time None Recorded Advance Directives Directive None Recorded Payers Encounter Date Sequence Insurance Name Policy Number Policy Abel Covered Member ID Abel Member ID Guarantor Name 01/09/2023 2 [place] Zaverben C Houser [id number] Zaverben Houser 01/09/2023 1 [facility] (MEDICARE REPLACEMENT/ ADVANTAGE - HMO) [id number] Zaverben C Houser [id number] Zaverben Houser 09/05/2023 2 [place] Zaverben C Houser [id number] Zaverben Houser 09/05/2023 1 [facility] (MEDICARE REPLACEMENT/ ADVANTAGE - HMO) [id number] Zaverben C Houser [id number] Zaverben Houser 10/02/2023 2 [place] Zaverben C Houser [id number] Zaverben Houser 10/02/2023 1 [facility] (MEDICARE REPLACEMENT/ ADVANTAGE - HMO) [id number] Zaverben C Houser [id number] Zaverben Houser 10/21/2023 2 [place] Zaverben C Houser [id number] Luzma Houser 10/21/2023 1 [facility] (MEDICARE REPLACEMENT/ ADVANTAGE - HMO) [id number] Luzma Houser [id number] Luzma Houser Notes Date Note Type Note Provider Name and Address Organization Details Recorded Time 01/09/2023 text/html New pt visit:77 yo F is here with her grand daughter to establish her care. Pt was seeing PCP at [facility] in the past.Doing overall well. Needs refill on her meds. Pt has h/o cardiac pacemaker placed and she is f/u with Cardio at [facility] for it.PMH, FH and SH reviewed. Darinel Houser MD [address], [place], [address], [employer] 01/09/2023 15:58:13 09/05/2023 text/html Pt is here with family for f/u on her meds and chronic conditions. Doing overall well. Needs refill on her meds. Last visit in 01/28. Pt has h/o cardiac pacemaker placed and she is f/u with Cardio at [facility] for it. Darinel Houser MD [address], [place], [place], [address], [employer] 09/05/2023 10:08:46 10/21/2023 text/html Pt is here with son for f/u on her annual labs. Doing overall well. Denies any problem with meds. Denies any new concern. Denies any more dizziness and she is back to her normal. Pt has h/o cardiac pacemaker placed and she is f/u with Cardio at [facility] for it. Darinel Houser MD [address], [place], [place], [address], [employer] 10/21/2023 14:45:11
--- OUTSIDE RECORDS SUMMARY | 2024-08-06 10:54 | XMS_ITS | Clinical Summary ---
Author Organization [facility] Address [address] [place] [address] Care Team Providers Care Telephone Operator Receptionist Name Role Phone Preeti So MD Unavailable [phone] Preeti So MD Primary Care Provider [phone] Source Comments [facility],non-owned Affiliates and Associated Physician Practices is amultiple site organization consisting of ambulatory clinics and hospital sitesin [place], [place], [place] and [place]. This disclosure is being madepursuant to the Care Everywhere program and may not contain all information available regarding this patient. Last updated 17.[facility] Allergies No known active allergies Medications * [...] age to complete this topic Insurance MEDICARE [facility] MANAGED MEDICARE ADV MEDICAID - PENDING [facility] MANAGED MEDICARE ADV Care Teams Telephone Operator Receptionist Relationship Specialty Start Date End Date Preeti So MD [address] [place] [address] PCP - General 08/15/23 Preeti So MD [address] [place] [address] Family Medicine 10/08/19
== END 2024-08-06 10:10 | disposition home or self-care (01) ==
PROVIDERS: PCP Family Medicine; Visit Provider Internal Medicine Nephrology
DX: N18.32 Chronic kidney disease, stage 3b (principal)
CPT/HCPCS: 76775

== ENCOUNTER 2024-09-28 11:13 | Outpatient (CLI) | payer MEDICARE, MEDICAID, SELFPAY ==
[2024-09-28 12:45] LABS: Basophils Percent Auto 0.3 % (0.2-1.2); Eosinophils Absolute Auto 0.2 K/mm3 (0-0.3); Eosinophils Percent Auto 2.7 % (0-4.4); Hematocrit 38.1 % (37.0-47.0); Hemoglobin 12.3 g/dL (12.0-15.0); Immature Granulocyte Absolute 0.04 K/mm3 (0.00-0.031); Immature Granulocyte Percent A 0.5 % (0-0.5); Lymphocytes Absolute Auto 2.33 K/mm3 (0.9-3.2); Lymphocytes Percent Auto 27.1 % (18.3-44.2); Mean Corpuscular HGB Conc 32.3 g/dl (32-36); Mean Corpuscular Hemoglobin 27.6 pg (26-34); Mean Corpuscular Volume 85.6 fl (80-100); Mean Platelet Volume 10.9 fl (7.4-10.4); Monocytes Absolute Auto 0.6 K/mm3 (0.1-0.6); Monocytes Percent Auto 6.9 % (2.6-8.5); Neutrophils Absolute Auto 5.4 K/mm3 (1.3-6.7); Neutrophils Percent Auto 62.5 % (45.5-73.1); Platelet Count Result 245 k/mm3 (150-375); Red Blood Count 4.45 M/mm3 (4.2-5.4); Red Cell Distribution Width 14.8 % (11.5-14.5); White Blood Count 8.6 K/mm3 (4.5-10.0)
[2024-09-28 13:00] LABS: Alanine Aminotransferase 22 U/L (6-35); Albumin Level 4.3 g/dL (3.5-5.1); Alkaline Phosphatase 71 U/L (38-126); Anion Gap 9 mmol/L (4-12); Aspartate Amino Transferase 45 U/L (14-36); Bilirubin,Total 0.5 mg/dL (0.2-1.3); Blood Urea Nitrogen 18 mg/dL (7-17); Calcium 9.7 mg/dL (8.4-10.2); Carbon Dioxide 22 mmol/L (22-30); Chloride 108 mmol/L (98-107); Estimated Glomerular Filt Rate 39; Glucose 91 mg/dL (65-110); Potassium 4.7 mmol/L (3.4-5.0); Sodium 139 mmol/L (137-145); Total Protein 7.6 g/dL (6.3-8.2)
[2024-09-28 13:10] LABS: Iron 71 ug/dL (37-170)
[2024-09-28 13:27] LABS: Percent Iron Saturation 19 % (20-50)
[2024-09-28 16:41] LABS: Hemoglobin A1C 5.7 % (<5.7)
== END 2024-09-28 11:14 | disposition home or self-care (01) ==
PROVIDERS: PCP Family Medicine; Visit Provider Family Medicine
DX: E03.9 Hypothyroidism, unspecified (principal); I10 Essential (primary) hypertension; D64.9 Anemia, unspecified; R73.03 Prediabetes
CPT/HCPCS: 36415; 80053; 82728; 83036; 83540; 83550; 84443; 85025

== ENCOUNTER 2024-11-13 16:39 | Outpatient (CLI) | payer MEDICARE, MEDICAID, SELFPAY ==
--- OUTSIDE RECORDS SUMMARY | 2024-11-13 16:44 | XMS_ITS | Clinical Summary ---
Author Organization [facility] Address [address] [address] [place] [address] Care Team Providers Care Early Childhood Teacher Name Role Phone Preeti So MD Primary Care Provider [phone] Medications apixaban (ELIQUIS) 5 MG tablet Take [...] 8:16 AM CDT Height 154.9 cm (5' 1) 01/02/2022 8:16 AM CDT Body Mass Index [...] patient's age to complete this topic Insurance [facility] Care Teams Early Childhood Teacher Relationship Specialty Start Date End Date Preeti So MD [address] [place] [phone] PCP - General FAMILY PRACTICE 12/04/21
--- OUTSIDE RECORDS SUMMARY | 2024-11-13 16:44 | XMS_ITS | Clinical Summary ---
Author Organization [facility] Address [address] [place] [address] Care Team Providers Care Launch Manager Name Role Phone Preeti So MD Unavailable [phone] Preeti So MD Primary Care Provider [phone] Source Comments [facility],non-owned Affiliates and Associated Physician Practices is amultiple site organization consisting of ambulatory clinics and hospital sitesin [place], [place], [place] and [place]. This disclosure is being madepursuant to the Care Everywhere program and may not contain all information available regarding this patient. Last updated 17.[facility] Allergies No known active allergies Medications * [...] 1:10 PM CDT Height 165.1 cm (5' 5) 11/16/2021 1:10 PM CDT Body Mass Index [...] PNEUMOCOCCAL VACCINE 50+ (2 of 2 - PCV20 or PCV21) 01/04/2022 01/04/2021 COVID-19 VACCINE (3 - 2023-2 5 season) 2023 07/26/2020, 07/06/2020 DEPRESSION SCREENING 04/08/2024 07/25/2021 MEDICARE AWV CALENDAR YEAR 2024 07/25/2021 INFLUENZA VACCINE (#1) 2024 01/04/2021 HEPATITIS B VACCINE Aged Out [...] age to complete this topic Insurance MEDICARE [facility] MANAGED MEDICARE ADV MEDICAID - PENDING [facility] MANAGED MEDICARE ADV Care Teams Launch Manager Relationship Specialty Start Date End Date Preeti So MD [address] [place] [address] PCP - General 08/15/23 Preeti So MD [address] [place] [address] Family Medicine 10/08/19
--- OUTSIDE RECORDS SUMMARY | 2024-11-13 16:44 | XMS_ITS | Clinical Summary ---
Author Organization [facility] Address [address] [place] [address] Phone Care Team Providers Care Corporate Human Resources Manager Name Role Phone Provider, Not On File [...] 3:08 PM CDT Height 154.9 cm (5' 1) 11/21/2021 2:47 PM CDT Body Mass Index 28.72 11/21/2021 2:47 PM CDT Plan of Treatment Health Maintenance Due Date Last Done Comments Hepatitis C Virus (HCV) Screening 1945 TdaP Immunization 1945 Zoster Immunization (1 of 2) 1996 Respiratory Syncytial Virus (RSV) Immunization (Adult) (1 - 1-dose 75+ series) 2021 Pneumococcal Immunization (5 0+ years) (2 of 2 - PCV20 or PCV21) 01/04/2022 01/04/2021 SARS-COV-2 Immunization (4 - season) 2023 04/17/2021, 07/26/2020, 07/06/2020 Influenza Immunization (#1) 2024 01/04/2021 Hepatitis B Immunization Aged Out No longer eligible based on patient's age to complete this topic Human Papillomavirus (HPV) Immunization Aged Out No longer eligible b ased on patient's age to complete this topic Meningococcal Immunization (ACWY) Aged Out No longer eligible b ased on patient's age to complete this topic Rotavirus Immunization Aged Out No lo nger eligible based on patient's age to complete this topic Insurance MEDICARE [facility] on file Advance Directives * Full Code (Latest Code Status on File) Date Activated Date Inactivated Comments 11/27/2021 4:48 PM * Full Code Date Activated Date Inactivated Comments 11/17/2021 2:51 AM 11/20/2021 2:07 PM CPR-Full [place] atment: FULL ARREST: Attempt Resuscitation/CPR wit intubation and mechanical ventilation. PRE-ARREST: Use entire range of life support measures to stabilize the patient. Care Teams Corporate Human Resources Manager Relationship Specialty Start Date End Date Provider, Not On File [place] PCP - General 11/17/21
[2024-11-13 17:18] LABS: Hematocrit 37.1 % (37.0-47.0); Hemoglobin 12.2 g/dL (12.0-15.0); Mean Corpuscular HGB Conc 32.9 g/dl (32-36); Mean Corpuscular Hemoglobin 28.2 pg (26-34); Mean Corpuscular Volume 85.7 fl (80-100); Platelet Count Result 212 k/mm3 (150-375); Red Blood Count 4.33 M/mm3 (4.2-5.4); White Blood Count 8.2 K/mm3 (4.5-10.0)
[2024-11-13 17:25] LABS: Albumin Level 4.1 g/dL (3.5-5.1); Anion Gap 9 mmol/L (4-12); Blood Urea Nitrogen 19 mg/dL (7-17); Calcium 9.4 mg/dL (8.4-10.2); Carbon Dioxide 23 mmol/L (22-30); Chloride 104 mmol/L (98-107); Estimated Glomerular Filt Rate 38; Glucose 100 mg/dL (65-110); Potassium 4.9 mmol/L (3.4-5.0); Sodium 136 mmol/L (137-145); Total Protein Urine Random 8 mg/dL; Ur Ttl Prot Creatinine Ratio 0.07 mg/mg (0-0.20)
[2024-11-13 17:36] LABS: Parathyroid Intact 61.9 pg/mL (14.5-75.2)
== END 2024-11-13 16:40 | disposition home or self-care (01) ==
LOC: ANHLAB 16:42
PROVIDERS: PCP Family Medicine; Visit Provider Internal Medicine Nephrology
DX: I12.9 Hypertensive chronic kidney disease with stage 1 through stage 4 chronic kidney disease, or unspecified chronic kidney disease (principal); N18.32 Chronic kidney disease, stage 3b
CPT/HCPCS: 36415; 80069; 82570; 83970; 84156; 85027

== ENCOUNTER 2024-11-25 00:25 | Day surgery (SDC) | payer MEDICARE, MEDICAID, SELFPAY ==
[2024-11-19 15:05] VITALS: BMI 31.7
--- NOTE | 2024-11-19 15:32 | PC.NURSE ---
Spoke with GRANDDAUGHTER-Nicole regarding medication ELIQUIS_. _WINDYI_verbalizes understanding that the last dose is to be taken on _11/21/2024_ and the Endoscopist will instruct them when to restart after the procedure.
--- OUTSIDE RECORDS SUMMARY | 2024-11-25 00:35 | XMS_ITS ---
Author Organization [facility] Address [address] [place] [address] Care Team Providers Care Dental Services Director Name Role Phone Preeti So MD Unavailable [phone] Preeti So MD Primary Care Provider [phone] Nicolette Andrews Unavailable QMM & AWV - [facility] Status:Identified (Enrolling) Start date:11/19/2024 Enrollment reason:Identified using claims or encounter data Case Team Name Relationship Phone Nicolette Andrews(Responsible Staff) Care Coordinatio n Specialist [phone] Continued Care and Services Coordination
--- OUTSIDE RECORDS SUMMARY | 2024-11-25 00:35 | XMS_ITS | Clinical Summary ---
Author Organization [facility] Address [facility] [place] [address] Care Team Providers Care Structural Steel Painter Name Role Phone Preeti So MD Primary Care Provider [phone] Medications apixaban (ELIQUIS) 5 MG tablet Take [...] patient's age to complete this topic Insurance [facility] Care Teams Structural Steel Painter Relationship Specialty Start Date End Date Preeti So MD [address] [place] [phone] PCP - General FAMILY PRACTICE 12/04/21
--- OUTSIDE RECORDS SUMMARY | 2024-11-25 00:35 | XMS_ITS | Clinical Summary ---
Author Organization [facility] Address [address] [place] [address] Phone Care Team Providers Care Webbing Inspector Name Role Phone Provider, Not On File [...] to complete this topic Insurance MEDICARE [facility] on file Advance Directives * Full Code (Latest Code Status on File) Date Activated Date Inactivated Comments 11/27/2021 4:48 PM * Full Code Date Activated Date Inactivated Comments 11/17/2021 2:51 AM 11/20/2021 2:07 PM CPR-Full [place] atment: FULL ARREST: Attempt Resuscitation/CPR wit intubation and mechanical ventilation. PRE-ARREST: Use entire range of life support measures to stabilize the patient. Care Teams Webbing Inspector Relationship Specialty Start Date End Date Provider, Not On File [place] PCP - General 11/17/21
--- OUTSIDE RECORDS SUMMARY | 2024-11-25 00:35 | XMS_ITS | Clinical Summary ---
Author Organization [facility] [employer] Address [address] [place] [address] Care Team Providers Care Photoengraving Proofer Apprentice Name Role Phone Preeti So MD Unavailable [phone] Preeti So MD Primary Care Provider [phone] Nicolette Andrews Unavailable Source Comments [facility],non-owned Affiliates and Associated Physician Practices is amultiple site organization consisting of ambulatory clinics and hospital sitesin [place], [place], [place] and [place]. This disclosure is being madepursuant to the Care Everywhere program and may not contain all information available regarding this patient. Last updated 17.[facility] [employer] Allergies No known active allergies Medications * [...] disease) stage 3, GFR 30-59 ml/min 07/24/2021 Encounters Date Type Department Care Team Description 11/19/2024 Patient Outreach [facility] - Care Coordination [address] [place] [address] Nicolette Andrews from Last 3 Months Immunizations Immunization Administration Dates Next Due INFLUENZA [...] Average Number of Drinks Not on file 020 Frequency of Binge Drinking Not on file [...] age to complete this topic Insurance MEDICARE [facility] MANAGED MEDICARE ADV MEDICAID - PENDING ([address] [address] [facility] MANAGED MEDICARE ADV Care Teams Photoengraving Proofer Apprentice Relationship Specialty Start Date End Date Preeti So MD [address] [place] [phone] PCP - General 08/15/23 Preeti So MD [address] [place] [address] Family Medicine 10/08/19 Nicolette Andrews Care Coordination Specialist Care Management 11/19/24
[2024-11-25 09:35] VITALS: BP 178/79; PULSE 86; RESP 16; TEMP 36.3; O2SAT 100; BMI 31.6
--- NOTE | 2024-11-25 09:58 | WPDANESEPPF ---
Anes - Initial Pre Proc Eval Procedure: Operation Date: 11/25/24 11:00 Proposed Procedures p Screening Colonoscopy - Shadi Jose MD Date/Time: 11/25/24 09:58 Surgeon: Shadi Jose MD Pre Op Diagnosis: Screening Patient Data Age: 79 Gender: F Height: 1.57 m Weight: 78.3 kg Last Vital Signs Temp 36.3 C L 11/25/24 09:35 Pulse 86 11/25/24 09:35 Resp 16 11/25/24 09:35 BP 178/79 H 11/25/24 09:35 Pulse Ox 100 11/25/24 09:35 O2 Del Method Room Air 11/25/24 09:35 Allergies Allergy/AdvReac Type Severity Reaction Status Date / Time No Known Allergies Allergy Verified 11/25/24 09:43 Home Medications ?Medication ?Instructions ?Recorded ?Confirmed ?Type apixaban 5 mg tablet (Eliquis) 5 mg PO BID #60 tabs 12/25/22 11/25/24 Rx atorvastatin 20 mg tablet 20 mg PO QHS #90 tabs 12/25/22 11/25/24 Rx olmesartan 40 1 tablet PO DAILY #90 tabs 12/25/22 11/25/24 Rx mg-hydrochlorothiazide 12.5 mg tablet omeprazole 20 mg capsule,delayed 20 mg PO DAILY #90 caps 12/25/22 11/25/24 Rx release diltiazem HCl 30 mg tablet 30 mg PO BID 01/20/24 11/25/24 History metoprolol succinate 25 mg 25 mg PO HS 01/20/24 11/25/24 History tablet,extended release 24 hr multivitamin (Daily Multi-Vitamin 1 tablet PO DAILY 01/20/24 11/25/24 History tablet) cholecalciferol (vitamin D3) 50 50 mcg PO DAILY #90 tabs 03/30/24 11/25/24 Rx mcg (2,000 unit) tablet meclizine 25 mg tablet 25 mg PO .PRN 03/30/24 11/25/24 History mecobalamin (vitamin B12) 500 mcg 1,000 mcg PO DAILY 09/28/24 11/25/24 History chewable tablet ferrous sulfate 324 mg (65 mg 324 mg PO DAILY #90 tabs 10/01/24 11/25/24 Rx iron) tablet,delayed release levothyroxine 100 mcg tablet 100 mcg PO DAILY #90 tabs 10/15/24 11/25/24 Rx Patient hx anesthesia problems: none Family hx anesthesia problems: none Results Review: All pre-operative results and documents have been reviewed as part of the pre-operative evaluation. [facility] Past Medical History Medical History Prediabetes CKD stage 3b, GFR 30-44 ml/min GERD without esophagitis Vitamin D deficiency Chronic low back pain without sciatica Hyperlipidemia Benign essential HTN Hypothyroidism (acquired) Presence of biventricular cardiac pacemaker SSS (sick sinus syndrome) (~11/2021) Atrial fib/flutter, transient Frozen shoulder Surgical History Surgical History History of permanent cardiac pacemaker placement (~11/2021) Family History Family History Unknown Hypertension Social History Social History Social History: Smoking status: Never smoker Second hand tobacco smoke exposure: No Alcohol intake: never Substance use: never Substance use type: does not use Lack of Transportation: No Lack of Food: Never True Current Housing: I Have Housing Concerned About Future Housing: No Difficulty Paying Gas/Electric Bills: No Difficulty Paying for Meds: No Currently Unemployed: YES Education: Decline to Answer Difficulty w/ Childcare or Family Care: No Living arrangements: with family Occupation/Education: retired Gender identity (if verbalized by the patient): Female Sexual Orientation (if Verbalized by the Patient): Straight or Heterosexual Anes - Eval Final PreProcedure Day of Procedure 11/25/24 09:58 Patient weight: obese Heart: regular rate and rhythm (paced) Lungs: clear to auscultation Airway: Mallampati scale class II Neurological: alert and oriented Last oral intake: >/= 8 hours ASA classification: III Emergent: no Anesthetic plan: proceed Anesthesia type and monitoring: general GIVS and standard monitoring Results Review: All pre-operative results and documents have been reviewed as part of the pre-operative evaluation. Informed Consent: The patient's anesthetic plan and its attendant risks and benefits were discussed with the patient/family/POA. Questions were solicited and answers provided to the satisfaction of the patient/family/POA.
[2024-11-25] MEDS: LACTATED RINGERS 1,000 ML 150 ML IV CONT (09:59)
--- NOTE | 2024-11-25 10:01 | SUR.PREOP ---
Pt's last dose of Eliquis was on 11-23-24 instead of 11-21-24. Dr. Jose is aware.
--- NOTE | 2024-11-25 10:52 | PM.IMHP ---
H&P: HPI History of Present Illness Date/Time: 11/25/24 10:52 Chief Complaint: Screening colonoscopy Narrative: This is the patient's first colonoscopy. There are no GI symptoms and there is no family history of colorectal cancer. Review of Systems Review of Systems: All systems reviewed & are unremarkable except as noted in HPI and below PMFSH Past Medical History Medical History Prediabetes CKD stage 3b, GFR 30-44 ml/min GERD without esophagitis Vitamin D deficiency Chronic low back pain without sciatica Hyperlipidemia Benign essential HTN Hypothyroidism (acquired) Presence of biventricular cardiac pacemaker SSS (sick sinus syndrome) (~11/2021) Atrial fib/flutter, transient Frozen shoulder Surgical History Surgical History History of permanent cardiac pacemaker placement (~11/2021) Family History Family History Unknown Hypertension Social History Social History Social History: Smoking status: Never smoker Second hand tobacco smoke exposure: No Alcohol intake: never Substance use: never Substance use type: does not use Lack of Transportation: No Lack of Food: Never True Current Housing: I Have Housing Concerned About Future Housing: No Difficulty Paying Gas/Electric Bills: No Difficulty Paying for Meds: No Currently Unemployed: YES Education: Decline to Answer Difficulty w/ Childcare or Family Care: No Living arrangements: with family Occupation/Education: retired Gender identity (if verbalized by the patient): Female Sexual Orientation (if Verbalized by the Patient): Straight or Heterosexual Meds Home Medications and Allergies Home Medications ?Medication ?Instructions ?Recorded ?Confirmed ?Type apixaban 5 mg tablet (Eliquis) 5 mg PO BID #60 tabs 12/25/22 11/25/24 Rx atorvastatin 20 mg tablet 20 mg PO QHS #90 tabs 12/25/22 11/25/24 Rx olmesartan 40 1 tablet PO DAILY #90 tabs 12/25/22 11/25/24 Rx mg-hydrochlorothiazide 12.5 mg tablet omeprazole 20 mg capsule,delayed 20 mg PO DAILY #90 caps 12/25/22 11/25/24 Rx release diltiazem HCl 30 mg tablet 30 mg PO BID 01/20/24 11/25/24 History metoprolol succinate 25 mg 25 mg PO HS 01/20/24 11/25/24 History tablet,extended release 24 hr multivitamin (Daily Multi-Vitamin 1 tablet PO DAILY 01/20/24 11/25/24 History tablet) cholecalciferol (vitamin D3) 50 50 mcg PO DAILY #90 tabs 03/30/24 11/25/24 Rx mcg (2,000 unit) tablet meclizine 25 mg tablet 25 mg PO .PRN 03/30/24 11/25/24 History mecobalamin (vitamin B12) 500 mcg 1,000 mcg PO DAILY 09/28/24 11/25/24 History chewable tablet ferrous sulfate 324 mg (65 mg 324 mg PO DAILY #90 tabs 10/01/24 11/25/24 Rx iron) tablet,delayed release levothyroxine 100 mcg tablet 100 mcg PO DAILY #90 tabs 10/15/24 11/25/24 Rx Allergies Allergy/AdvReac Type Severity Reaction Status Date / Time No Known Allergies Allergy Verified 11/25/24 09:43 Vital Signs Vital Signs - 24 hr 11/25/24 09:35 Temperature 97.3 F L Pulse Rate 86 Respiratory Rate 16 Blood Pressure 178/79 H Pulse Oximetry 100 Oxygen Delivery Room Air Exam Const: General: cooperative and healthy appearing Resp: Effort & Inspection: normal respiratory effort and able to speak in complete sentences Auscultation: clear to auscultation bilaterally Cardio: Rate: regular rate Rhythm: regular rhythm GI: Inspection: normal to inspection GI Palp: No No hepatosplenomegaly present Auscultation: normal bowel sounds Rectal Exam: deferred Skin: General skin exam: normal color Psych: Appearance: grossly normal Mental Status: mental status grossly normal Assessment and Plan Assessment and plan (1) Positive colorectal cancer screening using Cologuard test: Code(s): R19.5 - Other fecal abnormalities Status: Acute Assessment and Plan: The patient is deemed a good candidate for the procedure. Consent signed. Will proceed.
--- NOTE | 2024-11-25 11:20 | S_PTH ---
PATIENT: Luzma Houser LOC: [facility] #:[id number] AGE/SX: 79/F ROOM: RE11/25/[address]: Shadi Jose MD : 1945 BED: DIS: 11/25/2024 SPEC #: [id number] RECD: 11/25/24 13:37 STATUS: ESTRELLA REQ #: [id number] CHIARA: 11/25/24 11:[address]: Shadi Jose DEPT: [facility] Surgical RECD BY: Katie Sheehan ENTERED: 11/25/24 13:38 SP TYPE: Surgical OTHR DR: Jaye Young MD Tissues: A - Colon Polypectomy Procedures: Hematoxylin and Eosin Stain Gross and Microscopic Level 4
[2024-11-25 11:23] VITALS: BP 131/64; PULSE 60; RESP 15; O2SAT 97
[2024-11-25 11:33] VITALS: BP 134/70; PULSE 60; RESP 17; O2SAT 100
[2024-11-25 11:43] VITALS: BP 147/68; PULSE 61; RESP 19; O2SAT 100
== END 2024-11-25 11:54 | disposition home or self-care (01) ==
PROVIDERS: PCP Family Medicine; Referring Provider Family Medicine; Visit Provider Internal Medicine Gastroenterology
PROC: 0DJD8ZZ Inspection of Lower Intestinal Tract, Via Natural or Artificial Opening Endoscopic (ICD-10-PCS; CPT 45378; principal; 2024-11-25 11:00)
DX: Z12.11 Encounter for screening for malignant neoplasm of colon (principal); D12.0 Benign neoplasm of cecum; K57.30 Diverticulosis of large intestine without perforation or abscess without bleeding; E78.5 Hyperlipidemia, unspecified; E03.9 Hypothyroidism, unspecified; E13.22 Other specified diabetes mellitus with diabetic chronic kidney disease; I12.9 Hypertensive chronic kidney disease with stage 1 through stage 4 chronic kidney disease, or unspecified chronic kidney disease; N18.32 Chronic kidney disease, stage 3b; K21.9 Gastro-esophageal reflux disease without esophagitis; E55.9 Vitamin D deficiency, unspecified; I49.5 Sick sinus syndrome; I48.91 Unspecified atrial fibrillation; I48.92 Unspecified atrial flutter; G89.29 Other chronic pain; M54.50 Low back pain, unspecified; E66.9 Obesity, unspecified; Z68.31 Body mass index [BMI] 31.0-31.9, adult; Z79.01 Long term (current) use of anticoagulants; Z95.0 Presence of cardiac pacemaker
CPT/HCPCS: 45385; 88305; J2003; J2704; J7120